=== PATIENT | male | born 1970 | race Caucasian/White ===

== ENCOUNTER → 2020-08-11 14:44 | Outpatient (BNVA) | payer OTHER, SELFPAY | PROVIDERS: PCP Internal Medicine; Referring Provider Internal Medicine; Visit Provider Nurse Practitioner | DX: Z76.89 Persons encountering health services in other specified circumstances (principal) ==

== ENCOUNTER 2020-09-17 10:07 | Day surgery (SDC) | payer OTHER, SELFPAY ==
[2020-09-12 09:52] VITALS: BMI 33.2
--- NOTE | 2020-09-16 09:41 | P.CONAN_ITS ---
Documented by User: Sharifa Wagoner 09/16/20 09:42 HPI - Anesthesia Eval Consult details Narrative: 50yo M for Colonoscopy [facility] Past Medical History Medical History (Updated 09/12/20 @ 09:51 by Blanquita White) Elevated cholesterol GERD (gastroesophageal reflux disease) HTN (hypertension) Family History Family History (Updated 08/11/20 @ 14:17 by DESTINY Gudino) Father No problems noted. Mother HTN (hypertension) Diabetes Hypercholesteremia Myocardial infarction Sister Cancer Surgical History Surgical History Hx of colonoscopy Social History Social History Alcohol intake: current Alcohol intake frequency: holidays/special occasions only Smoking Status: Current every day smoker Packs Per Day: 0.5 Cigarettes Per Day: 10.0 Years Smoked: 20+ Smoked in Last 30 Days: Yes Patient Given Instructions on How to Stop Smoking: Yes Date Education Initiated: 09/12/20 Use of substances other than those prescribed or required for medical reasons: No Advance Directives: No Advance Directives Information Provided: No Advance Directives on File: No Recently lost weight without trying: No Meds Allergies Allergy/AdvReac Type Severity Reaction Status Date / Time No Known Allergies Allergy Unverified 09/12/20 09:51 [No Known Allergies*] Exam Exam Date and Time: September 16, 2020 0941 Height,Weight and Vital Signs: Height 5 ft 9 in Weight 102.058 kg Assessment and Plan Assessment Anesthesia Assessment: Chart Reviewed Documented by User: Griselda Tijerina 09/17/20 10:27 [facility] Past Medical History Medical History (Updated 09/12/20 @ 09:51 by Blanquita White) Elevated cholesterol GERD (gastroesophageal reflux disease) HTN (hypertension) Family History Family History (Updated 08/11/20 @ 14:17 by DESTINY Gudino) Father No problems noted. Mother HTN (hypertension) Diabetes Hypercholesteremia Myocardial infarction Sister Cancer Surgical History Surgical History Hx of colonoscopy Social History Social History Alcohol intake: current Alcohol intake frequency: holidays/special occasions only Smoking Status: Current every day smoker Packs Per Day: 0.5 Cigarettes Per Day: 10.0 Years Smoked: 20+ Smoked in Last 30 Days: Yes Patient Given Instructions on How to Stop Smoking: Yes Date Education Initiated: 09/12/20 Use of substances other than those prescribed or required for medical reasons: No Advance Directives: No Advance Directives Information Provided: No Advance Directives on File: No Recently lost weight without trying: No Meds Allergies Allergy/AdvReac Type Severity Reaction Status Date / Time No Known Allergies Allergy Unverified 09/12/20 09:51 [No Known Allergies*] Exam Airway Mallampati Class: II TM Dist: >3cm Neck ROM: Full Heart: RRR Lungs: CTA
[2020-09-17 10:28] VITALS: BP 147/107; PULSE 117; RESP 18; TEMP 36.2; O2SAT 97
[2020-09-17] MEDS: Lactated Ringers 1,000 ML 100 ML IVCONT (10:34)
--- NOTE | 2020-09-17 10:41 | MHC.SHP ---
Pre-Procedural Eval Section B Chief Complaint: tubular adenoma of colon Relevant Family History (Specify if Yes): No Relevant Social History: Tobacco Use Present Medications: see Short Stay Collaborative assessment Medical History: Significant History (Elevated cholesterol GERD (gastroesophageal reflux disease) HTN (hypertension)) History of Previous Operations: Relevant previous surgery/procedure and date(s) (knee surgery) Allergies: Allergies Allergy/AdvReac Type Severity Reaction Status Date / Time No Known Allergies Allergy Verified 09/17/20 10:28 [No Known Allergies*] Review of Systems Sugical H&P ROS: Negative: Constitution, Cardiovascular, Respiratory, Neurological, Psychiatric, Hem-Onc, Allergic/Immunologic, Gastrointestinal, Genitourinary, Musculoskeletal, Integumentary, Endocrine and Eyes/Ears/Nose/Throat Exam Surgical H&P Exam: Normal: HEENT, Normal: Heart, Normal: Lungs, Normal: Extremities, Normal: Abdomen, Normal: Skin and Normal: Neurological Plan Diagnosis/Plan: Unchanged I have reviewed the history and physical and performed a pertinent physical examination on my patient. No changes have occurred unless specified.
--- NOTE | 2020-09-17 10:41 | PM.OP ---
Brief Operative Note Date of Service: 09/17/20 Pre-op diagnosis: colon screen Post-op diagnosis: same Procedure: see op note Surgeon: Deborah Barrera MD Anesthesia: MAC Estimated blood loss (mL): 0 Condition: stable Disposition: PACU
--- NOTE | 2020-09-17 10:41 | W.PM.OPN ---
Operative Note Operative Note Date of Service: 09/17/20 Narrative: Operative Information Procedure Description: Colonoscopy COLONOSCOPY Instrument: Olympus variable stiffness pediatric scope 190L Colonoscopy Monitoring: Vital signs and clinical assessment, continuous EKG monitoring, Pulse oximetry, Carbon Dioxide monitoring and blood pressure monitoring were done throughout the procedure. Colon withdrawal time was 19 minutes. Procedure: The patient was placed in the left lateral decubitis position and pre-procedure medications were administered. After a digital rectal examination of the ano-rectum, the video colonoscope was inserted into the rectum and advanced through the colon to the cecum/TI. The colonoscope was slowly withdrawn in a retrograde panoramic fashion and the colon mucosa was carefully examined including a retroflexed view of the rectum. Findings and interventions are described below. Procedure Difficulty:moderate due to looping Findings: Terminal Ileum-couldn;t quite get deep intubation of TI due to looping, only superficial view and appeared normal Cecum: 6-8 mm sessile polyp removed with cold snare, otherwise nml Ascending Colon: normal Transverse Colon -normal Descending Colon:normal Sigmoid Colon: normal Rectum: Retroflexion with moderate sized internal hemorrhoids, grade II, proximal rectum 9 mm sessile polyp removed with cold snare Anorectum - internal hemorrhoids seen at anal verge Colon preparation: [place] Bowel Preparation Scale Right colon; 2 Transverse colon: 2 Left colon; 3 (0 = Unprepared colon segment with mucosa not seen due to solid stool that cannot be cleared. 1 = Portion of mucosa of the colon segment seen, but other areas of the colon segment not well seen due to staining, residual stool and/or opaque liquid. 2 = Minor amount of residual staining, small fragments of stool and/or opaque liquid, but mucosa of colon segment seen well. 3 = Entire mucosa of colon segment seen well with no residual staining, small fragments of stool or opaque liquid) Impression and Post Procedure Diagnosis: polyps internal hemorrhoids Plan: High fiber diet leaflet Avoid straining at stool, epsom salts and sitz bath, anusol supps or cream Repeat Colonoscopy in 5 years if adenoma polyps, 10 yrs if hyperplastic or earlier if clinically indicated Above findings were reviewed with the patient and relevant handouts were provided if indicated.
[2020-09-17 11:22] VITALS: BP 120/81; PULSE 116; RESP 20; TEMP 36.1; O2SAT 95
[2020-09-17 11:37] VITALS: BP 130/80; PULSE 101; RESP 20; TEMP 36.1; O2SAT 97
--- NOTE | 2020-09-17 12:00 | HO.POSTANES ---
Post Anesthesia Evaluation Post Anesthesia Evaluation Vital Signs: Vital Signs Temp Pulse Resp BP Pulse Ox 09/17/20 11:37 96.9 F 101 H 20 130/80 97 09/17/20 11:22 96.9 F 116 H 20 120/81 95 09/17/20 10:28 97.2 F 117 H 18 147/107 H 97 Anesthesia: General (tiva) Mental Status: Awake Pain Control: Satisfactory Nausea/Vomiting: None Hydration: Adequate Anesthesia-Related Issues: No Anes. Related Issues
--- NOTE | 2020-09-17 12:00 | HO.POSTANES ---
Post Anesthesia Evaluation Post Anesthesia Evaluation Vital Signs: Vital Signs Temp Pulse Resp BP Pulse Ox 09/17/20 11:37 96.9 F 101 H 20 130/80 97 09/17/20 11:22 96.9 F 116 H 20 120/81 95 09/17/20 10:28 97.2 F 117 H 18 147/107 H 97 Anesthesia: Monitored Mental Status: Awake Pain Control: Satisfactory Nausea/Vomiting: None Hydration: Adequate Anesthesia-Related Issues: No Anes. Related Issues
== END 2020-09-17 12:00 | disposition home or self-care (01) ==
PROVIDERS: PCP Internal Medicine; Visit Provider Internal Medicine Gastroenterology
PROC: 0DJD8ZZ Inspection of Lower Intestinal Tract, Via Natural or Artificial Opening Endoscopic (ICD-10-PCS; CPT 45378; principal; 2020-09-17 12:10)
DX: Z12.11 Encounter for screening for malignant neoplasm of colon (principal); Z86.010 Personal history of colon polyps; D12.2 Benign neoplasm of ascending colon; K62.1 Rectal polyp; K64.1 Second degree hemorrhoids; I10 Essential (primary) hypertension; K21.9 Gastro-esophageal reflux disease without esophagitis; F17.210 Nicotine dependence, cigarettes, uncomplicated; Z79.899 Other long term (current) drug therapy
CPT/HCPCS: 45385; 88305; J3010

== ENCOUNTER → 2020-10-15 13:24 | Outpatient (BNVA) | payer OTHER, SELFPAY | PROVIDERS: PCP Internal Medicine; Visit Provider Nurse Practitioner Family ==

== ENCOUNTER 2021-02-15 05:35 | Emergency (ER) | payer OTHER, SELFPAY ==
--- NOTE | ~2021-02-15 | XR_ITS ---
EXAMINATION: XR KNEE, LEFT CLINICAL INFORMATION: Pain and swelling COMPARISON: None TECHNIQUE: Four views of the left knee. FINDINGS: No acute fracture or dislocation. Small tricompartmental marginal osteophytes. Quadriceps and patellar tendon enthesopathy. Small knee joint effusion. Soft tissues unremarkable. XR/XR knee LT 4V IMPRESSION: No acute osseous abnormalities. Small knee joint effusion.
[2021-02-15 06:05] VITALS: BP 180/115; PULSE 100; RESP 16; TEMP 36.9; O2SAT 97; BMI 37.6
--- NOTE | 2021-02-15 07:13 | PC.NURSE ---
Report taken from CLAIRE Cramer. pt in bed resting quietly. awaiting disposition following X-ray.,
--- NOTE | 2021-02-15 07:19 | ED.LOWEXIN ---
HPI - Extremity Injury (Lower) General Chief Complaint: Extremity Injury, Lower Stated Complaint: left knee swollen Time Seen by Provider: 02/15/21 06:09 Source: patient Mode of arrival: ambulatory History of Present Illness HPI Narrative: 51-year-old male with left painful, swollen knee. Patient is status post arthroscopic meniscus repair of the left knee and states that he went through a more rigorous physical therapy session on Tuesday and since that time has noted that his knee has become a little more painful with some noted swelling and ?just not feeling right?. Otherwise, he denies any fever, chills, shortness of breath, chest pain/palpitations, or calf swelling. Related Data Previous Rx's Medication Instructions Recorded bisacodyl 5 mg tablet,delayed 10 mg PO BEDTIME 2 Days #4 tab 08/11/20 release omeprazole 40 mg capsule,delayed 40 mg PO DAILY 30 Days #30 cap 08/11/20 release polyethylene glycol 3350 17 238 g PO ONCE 1 Days #238 g 09/01/20 gram/dose oral powder Allergies Allergy/AdvReac Type Severity Reaction Status Date / Time No Known Allergies Allergy Verified 10/15/20 13:25 [No Known Allergies*] Review of Systems Review of Systems: Pertinent positives and negatives as stated in the HPI and 10 point review of systems is otherwise negative. [facility] Past Medical History Source: nursing notes reviewed Medical History Elevated cholesterol GERD (gastroesophageal reflux disease) HTN (hypertension) Surgical History H/O knee surgery Hx of colonoscopy Family History Family History Mother HTN (hypertension) Diabetes Hypercholesteremia Myocardial infarction Sister Cancer Social History Social History Household Members: Spouse Alcohol intake: current Alcohol intake frequency: holidays/special occasions only Cigarettes Per Day: 5 Years Smoked: 20+ Advance Directives: No Advance Directives Information Provided: No Physical Exam Vital Signs: Vital Signs: Last Vital Signs Temp 98.4 F 02/15/21 06:05 Pulse 100 02/15/21 06:05 Resp 16 02/15/21 06:05 BP 180/115 H 02/15/21 06:05 Pulse Ox 97 02/15/21 06:05 Body Mass Index 37.6 VITAL SIGNS: Reviewed. GENERAL: Well developed, well nourished, in no acute distress. HEAD: Normocephalic/atraumatic EYES: PERRLA, EOMI OROPHARYNX: no oral lesions noted, posterior pharynx clear LUNGS: Normal breath sounds. No adventitious sounds or accessory muscle use. SpO2<97> CARDIOVASCULAR: Regular rate and rhythm without noted murmurs ABDOMEN: Obese, Soft, non-tender, non-distended with bowel sounds. LEFT KNEE: Very mild swelling noted with minimal tenderness on palpation but noted at the medial aspect of the patellar ligament, neurovascularly intact distal NEUROLOGIC: Alert and oriented x 4. Course Course Course Narrative: 51-year-old male with history and clinical presentation consistent with left knee pain exacerbated by intense physical therapy session with residual swelling and discomfort at the left knee joint low clinical suspicion of infection. Review of x-rays negative for acute findings other than small effusion. Discussed with patient the utility of using compression and applied an Mikey wrap the patient was instructed to use when he ambulates. Discharge Plan Discharge Clinical Impression: Knee pain, left Patient Disposition: Home, Self-Care Instructions: Knee Pain (ED) Additional Instructions: Resume all home medications as prescribed. Recommend applying ice for 10-15 minutes, 3 to 4 times a day on unexposed scan. Keep Mikey wrap in place or your home brace while at walking. Follow-up with your doctor on Tuesday morning. Return to the ER for worsening symptoms. Prescriptions: No Action polyethylene glycol 3350 [Miralax] 17 gram/dose powder 238 g PO ONCE 1 Days Qty: 238 RF: 0 omeprazole 40 mg capsule,delayed release(DR/EC) 40 mg PO DAILY 30 Days Qty: 30 RF: 3 bisacodyl [Dulcolax (bisacodyl)] 5 mg tablet,delayed release (DR/EC) 10 mg PO BEDTIME 2 Days Qty: 4 RF: 0 Referrals: Physician,Unknown [Primary Care Provider] - 2 days
[2021-02-15 07:20] VITALS: BP 151/119
[2021-02-15] MEDS: Ketorolac Tromethamine 15 MG/ML VIAL IM (07:23)
[2021-02-15] MEDS: Acetaminophen 325 MG TABLET 975 MG PO (07:24)
== END 2021-02-15 07:42 | disposition home or self-care (01) ==
PROVIDERS: Emergency Provider Student in an Organized Health Care Education/Training Program
DX: M25.562 Pain in left knee (principal); I10 Essential (primary) hypertension
CPT/HCPCS: 73564; 96372; 99284; J1885

== ENCOUNTER 2021-07-31 00:45 | Emergency (ER) | payer OTHER, SELFPAY ==
--- NOTE | ~2021-07-31 | US_ITS ---
EXAMINATION: US SCROTUM CLINICAL INFORMATION: Swelling, severe right-sided.. COMPARISON: None TECHNIQUE: A sonogram of the scrotum was performed assessing weaver-scale appearance and color Doppler flow. Spectral Doppler analysis of the arterial and venous flow were performed in the testes bilaterally. FINDINGS: The testes are normal in appearance. The right testis measures 3.8 cm x 2.8 cm x 3.1 cm. The left testis measures 4.5 cm x 2.9 cm x 2.9 cm. Normal color Doppler flow is noted within the testes. No focal parenchymal lesions of the testes. Normal low resistive arterial and venous waveforms are identified on spectral Doppler interrogation within the left and right testes. Color Doppler flow demonstrates hyperemia within the body and tail of the right epididymis which appears mildly enlarged. Incidental note is made of a unilocular benign-appearing 6 mm diameter simple cyst within the head of the left epididymis which is otherwise normal in appearance. A large right-sided hydrocele comprised of predominantly anechoic fluid is noted. US/US scrotum doppler IMPRESSION: -Findings suspicious for right-sided epididymitis. The right epididymis demonstrates hyperemia and mild enlargement. Furthermore, a large right hydrocele comprised of predominantly anechoic, simple fluid is noted. -Normal appearance of the testes.
--- NOTE | ~2021-07-31 | US_ITS ---
EXAMINATION: US SCROTUM CLINICAL INFORMATION: Swelling, severe right-sided.. COMPARISON: None TECHNIQUE: A sonogram of the scrotum was performed assessing weaver-scale appearance and color Doppler flow. Spectral Doppler analysis of the arterial and venous flow were performed in the testes bilaterally. FINDINGS: The testes are normal in appearance. The right testis measures 3.8 cm x 2.8 cm x 3.1 cm. The left testis measures 4.5 cm x 2.9 cm x 2.9 cm. Normal color Doppler flow is noted within the testes. No focal parenchymal lesions of the testes. Normal low resistive arterial and venous waveforms are identified on spectral Doppler interrogation within the left and right testes. Color Doppler flow demonstrates hyperemia within the body and tail of the right epididymis which appears mildly enlarged. Incidental note is made of a unilocular benign-appearing 6 mm diameter simple cyst within the head of the left epididymis which is otherwise normal in appearance. A large right-sided hydrocele comprised of predominantly anechoic fluid is noted. US/US scrotum IMPRESSION: -Findings suspicious for right-sided epididymitis. The right epididymis demonstrates hyperemia and mild enlargement. Furthermore, a large right hydrocele comprised of predominantly anechoic, simple fluid is noted. -Normal appearance of the testes.
[2021-07-31 00:47] VITALS: BP 157/111; PULSE 116; RESP 20; TEMP 36.9; O2SAT 98; BMI 36.6
--- NOTE | 2021-07-31 01:04 | ED_ITS ---
HPI - Male Genitourinary General Chief complaint: General Medical Stated complaint: ?Hernia Time Seen by Provider: 07/31/21 00:47 Source: patient Mode of arrival: ambulatory Limitations: no limitations History of Present Illness MD Complaint: testicle pain and testicle swelling Onset (ago): day(s) (2 has had this before but never to this degree has not had it worked up in the past) Duration: progressively worsening Location: right testicle Radiation: right testicle Severity: moderate Quality: aching Relieving factors: none Exacerbating factors: urination Context: other (hx of same in past but usually resolves quicker) Associated symptoms: Reports blood in urine (thinks he saw some drops of blood the other day) Related Data Previous Rx's Medication Instructions Recorded bisacodyl 5 mg tablet,delayed 10 mg PO BEDTIME 2 Days #4 tab 08/11/20 release (Dulcolax (bisacodyl)) omeprazole 40 mg capsule,delayed 40 mg PO DAILY 30 Days #30 cap 08/11/20 release polyethylene glycol 3350 17 238 g PO ONCE 1 Days #238 g 09/01/20 gram/dose oral powder (Miralax) levofloxacin 500 mg tablet 500 mg PO DAILY 10 Days #10 tab 07/31/21 morphine 15 mg immediate release 15 mg PO Q6H PRN 4 Days #18 tab 07/31/21 tablet Allergies Allergy/AdvReac Type Severity Reaction Status Date / Time No Known Allergies Allergy Verified 07/31/21 00:56 [No Known Allergies*] Review of Systems Review of Systems: Constitutional : No Fever, No Chills ENT/Mouth : No sore throat, No Rhinorrhea Eyes: No Eye Pain, No Swelling, No Redness Cardiovascular : No Chest Pain, No SOB Respiratory : No Cough, No Sputum, No Wheezing Gastrointestinal : No Nausea, No Vomiting, No Diarrhea, No abdominal Pain Genitourinary : No Dysuria, No Urinary Frequency, pos Hematuria, pos testicle pain Musculoskeletal : No joint pain, No Myalgias, No Joint Swelling Skin : No Skin Lesions, No rash Neuro : No Weakness, No Numbness, No Dizziness, No Headache Psych : No Anxiety/Panic, No Depression Heme/Lymph: No Bruising, No Bleeding,No Lymphadenopathy Endocrine : No Polyuria, No Polydipsia All other systems reviewed and are negative [facility] Past Medical History Attestation statement: The following information was validated with the patient. Medical History Elevated cholesterol GERD (gastroesophageal reflux disease) HTN (hypertension) Surgical History H/O knee surgery Hx of colonoscopy Family History Family History Mother HTN (hypertension) Diabetes Hypercholesteremia Myocardial infarction Sister Cancer Social History Social History Household Members: Spouse Alcohol intake: current Alcohol intake frequency: holidays/special occasions only Cigarettes Per Day: 5 Years Smoked: 20+ Advance Directives: No Physical Exam Vital Signs: Vital Signs: Last Vital Signs Temp 98.4 F 07/31/21 00:47 Pulse 100 07/31/21 02:02 Resp 18 07/31/21 03:31 BP 163/108 H 07/31/21 02:02 Pulse Ox 95 07/31/21 02:02 BMI result Body Mass Index 36.6 Appearance: Alert. Oriented X3. No acute distress. Eyes: Pupils equal, round and reactive to light. ENT: Pharynx normal. Neck: Normal inspection. Neck supple. CVS: Normal heart rate and rhythm. Pulses normal. Respiratory: No respiratory distress. Breath sounds normal. Abdomen: Soft and nontender. no mass in groin felt : R testicle moderate swelling no erythema/abscess of scrotum noted no warmth, area that is swollen appears to be attached to the testicle itself - does not feel like a hernia Skin: Skin warm and dry. Normal skin color. Normal skin turgor. Extremities: No lower extremity edema. No calf ttp Neuro: Oriented X 3. No motor deficit. No sensory deficit. Course Course Course Narrative: empiric ceftriaxone and levofloxacin ordered - can be managed as outpatient MDM - Male Genitourinary MDM Narrative Medical decision making narrative: 51 yo male with hx of HTN he is not DM comes in with c/o R testicle pain and swelling. He notes a history of this in the past but it usually goes down on its own but this bout the testicle has become more swollen and painful - no signs of abscess or infection. Will obtain labs, UA, US to evaluate the scrotum and testicle. PO pain medications. Dispo per results and findings. Lab Data Result diagrams: 07/31/21 01:16 07/31/21 01:16 Labs: Lab Results 07/31/21 07/31/21 07/31/21 Range/Units 01:16 01:16 01:27 WBC 12.3 H (4.8-10.8) X10*3/uL RBC 5.26 (4.60-5.80) X10*6/uL Hgb 16.0 (14.0-18.0) g/dl Hct 46.0 (42.0-52.0) % MCV 87.5 (80.0-98.0) fL MCH 30.4 (27.0-33.0) pg MCHC 34.8 (31.0-36.0) g/dl RDW 13.2 (11.0-16.0) % Plt Count 283 (160-400) X10*3/uL MPV 10.9 (9.4-12.4) fL Immature Gran % (Auto) 0.4 (0.0-0.4) % Neut % (Auto) 76.2 H (45-73) % Lymph % (Auto) 14.9 L (20-40) % [place] % (Auto) 7.8 (2-11) % Eos % (Auto) 0.5 (0-4) % Baso % (Auto) 0.2 (0-2) % Lymph # (Auto) 1.8 (1.2-4.9) X10*3/uL [place] # (Auto) 1.0 (0.1-1.2) X10*3/uL Eos # (Auto) 0.1 (0.0-0.4) X10*3/uL Baso # (Auto) 0.0 (0.0-0.2) X10*3/uL Abs Immat Gran (auto) 0.05 H (0.00-0.03) X10*3/uL Absolute Neuts (auto) 9.4 H (2.0-8.3) x10*3/uL Absolute Nucleated RBC 0.000 (0.0-0.012) X10*3/uL Nucleated RBC % (auto) 0.0 (0.0-0.2) /100WBC Sodium 139 (135-145) mmol/L Potassium 3.9 (3.3-5.1) mmol/L Chloride 107 (96-108) mmol/L Carbon Dioxide 23 (22-29) mmol/L Anion Gap 13 (12-20) BUN 14 (9-16) mg/dL Creatinine 1.16 (0.5-1.4) mg/dL Estim Creat Clear Calc 93.8 Estimated GFR > 60 Random Glucose 104 (60-115) mg/dL Lactic Acid (0.5-2.0) mmol/L Calcium 9.6 (8.4-10.2) mg/dL Urine Color YELLOW Urine Appearance HAZY Urine pH 6.0 (5.0-8.0) Ur Specific [place] 1.015 (1.005-1.025) Urine Protein NEG (NEG-TRACE) MG/DL Urine Glucose (UA) NEG (NEG) MG/DL Urine Ketones NEG (NEG) MG/DL Urine Blood TRACE (NEG) Urine Nitrite POS H (NEG) Ur Leukocyte Esterase 2+ H (NEG) Urine RBC 0-2 (0) /HPF Urine WBC 15-29 H (0-4) /HPF Ur Squamous Epith Cells NONE /LPF Urine Bacteria 2+ /LPF Urine Mucus TRACE /LPF 07/31/21 Range/Units 03:03 WBC (4.8-10.8) X10*3/uL RBC (4.60-5.80) X10*6/uL Hgb (14.0-18.0) g/dl Hct (42.0-52.0) % MCV (80.0-98.0) fL MCH (27.0-33.0) pg MCHC (31.0-36.0) g/dl RDW (11.0-16.0) % Plt Count (160-400) X10*3/uL MPV (9.4-12.4) fL Immature Gran % (Auto) (0.0-0.4) % Neut % (Auto) (45-73) % Lymph % (Auto) (20-40) % [place] % (Auto) (2-11) % Eos % (Auto) (0-4) % Baso % (Auto) (0-2) % Lymph # (Auto) (1.2-4.9) X10*3/uL [place] # (Auto) (0.1-1.2) X10*3/uL Eos # (Auto) (0.0-0.4) X10*3/uL Baso # (Auto) (0.0-0.2) X10*3/uL Abs Immat Gran (auto) (0.00-0.03) X10*3/uL Absolute Neuts (auto) (2.0-8.3) x10*3/uL Absolute Nucleated RBC (0.0-0.012) X10*3/uL Nucleated RBC % (auto) (0.0-0.2) /100WBC Sodium (135-145) mmol/L Potassium (3.3-5.1) mmol/L Chloride (96-108) mmol/L Carbon Dioxide (22-29) mmol/L Anion Gap (12-20) BUN (9-16) mg/dL Creatinine (0.5-1.4) mg/dL Estim Creat Clear Calc Estimated GFR Random Glucose (60-115) mg/dL Lactic Acid 1.3 (0.5-2.0) mmol/L Calcium (8.4-10.2) mg/dL Urine Color Urine Appearance Urine pH (5.0-8.0) Ur Specific [place] (1.005-1.025) Urine Protein (NEG-TRACE) MG/DL Urine Glucose (UA) (NEG) MG/DL Urine Ketones (NEG) MG/DL Urine Blood (NEG) Urine Nitrite (NEG) Ur Leukocyte Esterase (NEG) Urine RBC (0) /HPF Urine WBC (0-4) /HPF Ur Squamous Epith Cells /LPF Urine Bacteria /LPF Urine Mucus /LPF Discharge Plan Discharge Clinical Impression: Acute UTI, Acute hydrocele, Acute epididymitis Patient Disposition: Home, Self-Care Instructions: Epididymitis (ED), Hydrocele (ED), Urinary Tract Infection in Men (ED) Additional Instructions: wear very supportive underwear Prescriptions: New levofloxacin 500 mg tablet 500 mg PO DAILY 10 Days Qty: 10 RF: 0 morphine 15 mg tablet 15 mg PO Q6H PRN (Reason: pain) 4 Days Qty: 18 RF: 0 No Action polyethylene glycol 3350 [Miralax] 17 gram/dose powder 238 g PO ONCE 1 Days Qty: 238 RF: 0 omeprazole 40 mg capsule,delayed release(DR/EC) 40 mg PO DAILY 30 Days Qty: 30 RF: 3 bisacodyl [Dulcolax (bisacodyl)] 5 mg tablet,delayed release (DR/EC) 10 mg PO BEDTIME 2 Days Qty: 4 RF: 0 Referrals: Eber Davison MD [Physician] - 1 week Stand Alone Forms: Work/School Release
--- NOTE | 2021-07-31 01:08 | PC.NURSE ---
PROVIDER AT BED SIDE FOR PRIMARY EVAL.
[2021-07-31] MEDS: Morphine Sulfate Immed Release 15 MG TABLET PO (01:13)
[2021-07-31] MEDS: Ondansetron ODT 4 MG TAB.RAPDIS TRANSLINGU (01:14)
[2021-07-31 01:25] LABS: Basophils Percent Auto 0.2 % (0-2); Eosinophils Absolute Auto 0.1 X10*3/uL (0.0-0.4); Eosinophils Percent Auto 0.5 % (0-4); Imm Gran Abs Auto 0.05 X10*3/uL (0.00-0.03); Imm Gran Pct Auto 0.4 % (0.0-0.4); Lymphocytes Absolute Auto 1.8 X10*3/uL (1.2-4.9); Lymphocytes Percent Auto 14.9 % (20-40); Mean Corpuscular HGB Conc 34.8 g/dl (31.0-36.0); Mean Corpuscular Hemoglobin 30.4 pg (27.0-33.0); Mean Corpuscular Volume 87.5 fL (80.0-98.0); Mean Platelet Volume 10.9 fL (9.4-12.4); Monocytes Percent Auto 7.8 % (2-11); Neutrophils Absolute Auto 9.4 x10*3/uL (2.0-8.3); Neutrophils Percent Auto 76.2 % (45-73); Platelet Count 283 X10*3/uL (160-400); Red Blood Count 5.26 X10*6/uL (4.60-5.80); Red Cell Distribution Width 13.2 % (11.0-16.0); White Blood Count 12.3 X10*3/uL (4.8-10.8)
[2021-07-31 01:27] LABS: MANUAL DIFF FLAG NO
[2021-07-31 01:32] LABS: Appearance Urine HAZY; Color Urine YELLOW; Glucose Urine UA NEG (NEG); Leukocyte Esterase Urine 2+ (NEG); Nitrite Urine POS (NEG); Specific Gravity - Urine 1.015 (1.005-1.025); UACC Culture Trigger YES; Urine Blood TRACE (NEG); Urine Ketones NEG (NEG); Urine Protein NEG (NEG-TRACE)
[2021-07-31 01:40] LABS: Bacteria Urine 2+ /LPF; Mucus Urine TRACE /LPF
[2021-07-31 01:41] LABS: RBC Urine 0-2 /HPF (0)
[2021-07-31 01:42] LABS: Anion Gap 13 (12-20); Blood Urea Nitrogen 14 mg/dL (9-16); Calcium 9.6 mg/dL (8.4-10.2); Carbon Dioxide 23 mmol/L (22-29); Chloride 107 mmol/L (96-108); Creatinine Clr Calc Pharmacy 93.8; Estimated Glomerular Filt Rate > 60; Glucose Random 104 mg/dL (60-115); Potassium 3.9 mmol/L (3.3-5.1); Sodium 139 mmol/L (135-145)
[2021-07-31 02:02] VITALS: BP 163/108; PULSE 100; RESP 18; O2SAT 95
[2021-07-31] MEDS: levoFLOXacin/D5W 500 MG/100 ML PIGGYBACK 100 MG IV (03:09)
[2021-07-31 03:20] LABS: Lactic Acid 1.3 mmol/L (0.5-2.0)
[2021-07-31 03:31] VITALS: RESP 18
[2021-07-31] MEDS: HYDROmorphone HCl 1 MG/ML SYRINGE IVPUSH (03:31)
[2021-07-31] MEDS: cefTRIAXone sodium 1 GM in 0.9 % Sodium Chloride 50 ML IV (04:22)
== END 2021-07-31 05:10 | disposition home or self-care (01) ==
PROVIDERS: Emergency Provider Emergency Medicine
DX: N43.3 Hydrocele, unspecified (principal); N45.1 Epididymitis; N39.0 Urinary tract infection, site not specified; I10 Essential (primary) hypertension
CPT/HCPCS: 36415; 76870; 80048; 81001; 83605; 85025; 87040; 87086; 87088; 87186; 93975; 96365; 96367; 96375; 99284; J0696; J1170; J1956

== ENCOUNTER 2021-08-30 09:22 | Outpatient (REF) | payer OTHER, SELFPAY ==
[2021-08-30 10:31] LABS: COVID-19 Test Positive (Negative)
== END 2021-08-30 09:23 | disposition home or self-care (01) ==
LOC: HO.LAB 09:22
PROVIDERS: Visit Provider Internal Medicine
DX: Z20.822 Contact with and (suspected) exposure to COVID-19 (principal)
CPT/HCPCS: 36415; 87635; C9803

== ENCOUNTER 2021-09-03 07:58 | Outpatient (REF) | payer OTHER, SELFPAY ==
[2021-09-03 11:52] LABS: Binax Internal Control QC Valid; Binax Now Covid-19 Ag Positive (Negative)
== END 2021-09-03 07:59 | disposition home or self-care (01) ==
LOC: HO.LAB 07:58
PROVIDERS: Visit Provider Internal Medicine
DX: Z20.822 Contact with and (suspected) exposure to COVID-19 (principal)
CPT/HCPCS: C9803

== ENCOUNTER 2021-09-07 08:43 | Outpatient (REF) | payer OTHER, SELFPAY ==
[2021-09-07 11:58] LABS: Binax Internal Control QC Valid; Binax Now Covid-19 Ag Negative (Negative)
== END 2021-09-07 08:44 | disposition home or self-care (01) ==
LOC: HO.LAB 08:43
PROVIDERS: Visit Provider Internal Medicine
DX: Z20.822 Contact with and (suspected) exposure to COVID-19 (principal)
CPT/HCPCS: 36415; C9803

== ENCOUNTER 2022-01-12 10:34 | Outpatient (REF) | payer OTHER, SELFPAY ==
[2022-01-12 11:05] LABS: MANUAL DIFF FLAG NO
[2022-01-12 11:53] LABS: Basophils Percent Auto 0.2 % (0-2); Eosinophils Absolute Auto 0.2 X10*3/uL (0.0-0.4); Eosinophils Percent Auto 1.7 % (0-4); Hematocrit 48.3 % (42.0-52.0); Hemoglobin 16.2 g/dl (14.0-18.0); Imm Gran Abs Auto 0.07 X10*3/uL (0.00-0.03); Imm Gran Pct Auto 0.6 % (0.0-0.4); Lymphocytes Absolute Auto 2.4 X10*3/uL (1.2-4.9); Lymphocytes Percent Auto 19.8 % (20-40); Mean Corpuscular HGB Conc 33.5 g/dl (31.0-36.0); Mean Corpuscular Volume 86.6 fL (80.0-98.0); Mean Platelet Volume 11.3 fL (9.4-12.4); Monocytes Absolute Auto 0.9 X10*3/uL (0.1-1.2); Monocytes Percent Auto 7.3 % (2-11); Neutrophils Absolute Auto 8.4 x10*3/uL (2.0-8.3); Neutrophils Percent Auto 70.4 % (45-73); Platelet Count 281 X10*3/uL (160-400); Red Blood Count 5.58 X10*6/uL (4.60-5.80); Red Cell Distribution Width 13.2 % (11.0-16.0)
[2022-01-12 11:57] LABS: Estimated Average Glucose 120 mg/dL; Hemoglobin A1c % 5.8 %
[2022-01-12 12:25] LABS: Alanine Aminotransferase 48 U/L (0-40); Albumin Level 4.3 g/dL (3.5-5.0); Alkaline Phosphatase 109 U/L (39-117); Anion Gap 12 (12-20); Aspartate Amino Transferase 23 U/L (5-37); Bilirubin Total 0.6 mg/dL (0.0-1.0); Blood Urea Nitrogen 23 mg/dL (9-16); Calcium 9.9 mg/dL (8.4-10.2); Carbon Dioxide 27 mmol/L (22-29); Chloride 104 mmol/L (96-108); Cholesterol 161 mg/dL; Estimated Glomerular Filt Rate > 60; Glucose Random 96 mg/dL (60-115); HDL Cholesterol 29 mg/dL; LDL Cholesterol Calculated 105 mg/dl; Potassium 4.1 mmol/L (3.3-5.1); Sodium 139 mmol/L (135-145); Triglycerides 139 mg/dL
== END 2022-01-12 10:35 | disposition home or self-care (01) ==
LOC: HO.LAB 10:34
PROVIDERS: PCP Internal Medicine; Visit Provider Internal Medicine
DX: Z00.00 Encounter for general adult medical examination without abnormal findings (principal); I10 Essential (primary) hypertension; M54.50 Low back pain, unspecified; Z72.0 Tobacco use
CPT/HCPCS: 36415; 80053; 80061; 83036; 85025

== ENCOUNTER 2022-11-04 10:12 | Outpatient (REF) | payer OTHER, SELFPAY ==
[2022-11-04 10:46] LABS: MANUAL DIFF FLAG NO
[2022-11-04 11:04] LABS: Basophils Percent Auto 0.2 % (0-2); Eosinophils Absolute Auto 0.1 X10*3/uL (0.0-0.4); Eosinophils Percent Auto 1.4 % (0-4); Hematocrit 50.2 % (42.0-52.0); Hemoglobin 17.3 g/dl (14.0-18.0); Imm Gran Abs Auto 0.06 X10*3/uL (0.00-0.03); Imm Gran Pct Auto 0.6 % (0.0-0.4); Lymphocytes Absolute Auto 2.1 X10*3/uL (1.2-4.9); Lymphocytes Percent Auto 20.8 % (20-40); Mean Corpuscular HGB Conc 34.5 g/dl (31.0-36.0); Mean Corpuscular Hemoglobin 29.5 pg (27.0-33.0); Mean Corpuscular Volume 85.5 fL (80.0-98.0); Mean Platelet Volume 11.1 fL (9.4-12.4); Monocytes Absolute Auto 0.8 X10*3/uL (0.1-1.2); Monocytes Percent Auto 7.4 % (2-11); Neutrophils Absolute Auto 7.1 x10*3/uL (2.0-8.3); Neutrophils Percent Auto 69.6 % (45-73); Platelet Count 325 X10*3/uL (160-400); Red Blood Count 5.87 X10*6/uL (4.60-5.80); Red Cell Distribution Width 13.3 % (11.0-16.0); White Blood Count 10.2 X10*3/uL (4.8-10.8)
[2022-11-04 16:13] LABS: Alanine Aminotransferase 55 U/L (0-40); Albumin Level 4.4 g/dL (3.5-5.0); Alkaline Phosphatase 108 U/L (39-117); Anion Gap 16 (12-20); Aspartate Amino Transferase 28 U/L (5-37); Bilirubin Total 1.3 mg/dL (0.0-1.0); Blood Urea Nitrogen 16 mg/dL (9-16); Calcium 9.2 mg/dL (8.4-10.2); Carbon Dioxide 27 mmol/L (22-29); Chloride 101 mmol/L (96-108); Cholesterol 152 mg/dL; Estimated Glomerular Filt Rate 53; Glucose Fasting 91 mg/dL (60-99); HDL Cholesterol 29 mg/dL; LDL Cholesterol Calculated 106 mg/dl; Potassium 3.9 mmol/L (3.3-5.1); Sodium 140 mmol/L (135-145); Total Protein 6.7 g/dL (6.5-8.0); Triglycerides 87 mg/dL
[2022-11-04 16:17] LABS: Prostate Specific Antigen 0.44 ng/mL (<0.05-4.0)
== END 2022-11-04 10:13 | disposition home or self-care (01) ==
LOC: HO.10HDL 10:12
PROVIDERS: Visit Provider Internal Medicine
DX: E78.00 Pure hypercholesterolemia, unspecified (principal); I10 Essential (primary) hypertension; L82.1 Other seborrheic keratosis; M25.562 Pain in left knee; Z72.0 Tobacco use; Z12.5 Encounter for screening for malignant neoplasm of prostate
CPT/HCPCS: 36415; 80053; 80061; 84153; 85025

== ENCOUNTER 2023-04-07 12:21 | Outpatient (REF) | payer OTHER, SELFPAY ==
[2023-04-07 15:03] LABS: Cholesterol 130 mg/dL; HDL Cholesterol 25 mg/dL; LDL Cholesterol Calculated 69 mg/dl; Triglycerides 182 mg/dL
== END 2023-04-07 12:22 | disposition home or self-care (01) ==
LOC: HO.10HDL 12:21
PROVIDERS: Visit Provider Internal Medicine
DX: I10 Essential (primary) hypertension (principal); H34.12 Central retinal artery occlusion, left eye; G47.33 Obstructive sleep apnea (adult) (pediatric); Z72.0 Tobacco use
CPT/HCPCS: 36415; 80061

== ENCOUNTER 2024-01-12 11:47 | Outpatient (REF) | payer OTHER, SELFPAY ==
[2024-01-12 12:48] LABS: MANUAL DIFF FLAG NO
[2024-01-12 12:51] LABS: Basophils Percent Auto 0.3 % (0-2); Eosinophils Absolute Auto 0.1 X10*3/uL (0.0-0.4); Eosinophils Percent Auto 1.4 % (0-4); Hematocrit 49.8 % (42.0-52.0); Imm Gran Abs Auto 0.06 X10*3/uL (0.00-0.03); Imm Gran Pct Auto 0.7 % (0.0-0.4); Lymphocytes Percent Auto 23.1 % (20-40); Mean Corpuscular HGB Conc 34.1 g/dl (31.0-36.0); Mean Corpuscular Hemoglobin 29.9 pg (27.0-33.0); Mean Corpuscular Volume 87.7 fL (80.0-98.0); Mean Platelet Volume 10.9 fL (9.4-12.4); Monocytes Absolute Auto 0.8 X10*3/uL (0.1-1.2); Monocytes Percent Auto 8.7 % (2-11); Neutrophils Absolute Auto 5.7 x10*3/uL (2.0-8.3); Neutrophils Percent Auto 65.8 % (45-73); Platelet Count 308 X10*3/uL (160-400); Red Blood Count 5.68 X10*6/uL (4.60-5.80); Red Cell Distribution Width 13.6 % (11.0-16.0); White Blood Count 8.6 X10*3/uL (4.8-10.8)
[2024-01-12 13:32] LABS: Alanine Aminotransferase 78 U/L (0-40); Albumin Level 4.2 g/dL (3.5-5.0); Alkaline Phosphatase 110 U/L (39-117); Anion Gap 15 (12-20); Aspartate Amino Transferase 28 U/L (5-37); Bilirubin Total 0.7 mg/dL (0.0-1.0); Blood Urea Nitrogen 14 mg/dL (9-16); Calcium 9.9 mg/dL (8.4-10.2); Carbon Dioxide 25 mmol/L (22-29); Chloride 105 mmol/L (96-108); Cholesterol 128 mg/dL (<200); Estimated Glomerular Filt Rate > 60; Glucose Random 114 mg/dL (60-115); HDL Cholesterol 24 mg/dL (>40); LDL Cholesterol Calculated 75 mg/dL (<100); Potassium 3.9 mmol/L (3.3-5.1); Sodium 141 mmol/L (135-145); Total Protein 7.3 g/dL (6.5-8.0); Triglycerides 146 mg/dL (<150)
[2024-01-12 13:53] LABS: Prostate Specific Antigen Scr 0.37 ng/mL (<0.05-4.0)
== END 2024-01-12 11:48 | disposition home or self-care (01) ==
LOC: HO.10HDL 11:47
PROVIDERS: Visit Provider Internal Medicine
DX: G47.33 Obstructive sleep apnea (adult) (pediatric) (principal); I10 Essential (primary) hypertension; N30.00 Acute cystitis without hematuria; N40.0 Benign prostatic hyperplasia without lower urinary tract symptoms; Z12.5 Encounter for screening for malignant neoplasm of prostate
CPT/HCPCS: 36415; 80053; 80061; 84153; 85025

== ENCOUNTER 2024-04-06 07:29 | Observation (INO) | payer OTHER, SELFPAY ==
[2024-04-06] VITALS (13 sets, daily range): BP systolic 69–169; BP diastolic 51–106; PULSE 62–101; RESP 14–90; TEMP 36.6–37.1; O2SAT 93–99; BMI 40.2
--- NOTE | ~2024-04-06 | XR_ITS ---
EXAMINATION: XR CHEST CLINICAL INFORMATION: Hypertension, abdominal and chest pain. COMPARISON: Chest radiograph 05/30/2016. TECHNIQUE: Frontal view of the chest was obtained. FINDINGS: Low lung volumes with bronchovascular crowding and bibasilar subsegmental atelectasis. No consolidation, pleural effusion or pneumothorax. No pulmonary edema. Stable prominence of the cardiomediastinal silhouette. No acute osseous findings. XR/XR chest 1V IMPRESSION: Low lung volumes with bronchovascular crowding and bibasilar subsegmental atelectasis. No consolidation, pleural effusion or pneumothorax.
--- NOTE | ~2024-04-06 | CT_ITS ---
EXAMINATION: CT ABDOMEN AND PELVIS WITH CONTRAST CLINICAL INFORMATION: Severe abdominal pain, hypotension, tachycardia. COMPARISON: None available. TECHNIQUE: Multidetector volumetric images were obtained from the superior aspect of the liver through the pubic symphysis following administration 100 mL of Omnipaque 350 intravenous contrast. Sagittal and coronal reformatted images were obtained on the technologist's workstation. Oral contrast: No This CT examination was performed using dose optimization techniques as appropriate, variously including the following: *Automated exposure control *Adjustment of mA and/or kV according to patient size (this includes techniques or standardized protocols for targeted exams where dose is matched to indication/reason for exam; i.e. extremities or head) *Use of iterative reconstruction technique DLP: 1084 mGy-cm FINDINGS: LUNG BASES: Bibasilar subsegmental atelectasis. No focal consolidation or pleural effusion. LIVER, GALLBLADDER, AND BILIARY TREE: Hepatomegaly measuring 23.5 cm craniocaudally with decreased parenchymal density suggesting hepatic steatosis. No focal hepatic lesion or biliary ductal dilatation is present. Peripherally calcified oval-shaped structure in the gallbladder neck, likely a calculus measuring 1.8 cm. No evidence of gallbladder wall thickening. No pericholecystic inflammatory changes to suspect acute cholecystitis. PANCREAS: Unremarkable. SPLEEN: Unremarkable. ADRENAL GLANDS: Unremarkable. KIDNEYS AND URETERS: The kidneys are normal in size, shape, and attenuation. Too small to characterize cortical hypodensity in the lower right kidney, most likely a simple cyst, for which no imaging follow-up is recommended. No hydronephrosis, hydroureter, or calculi seen. No perinephric stranding. BLADDER: Moderate urinary bladder distention. GASTROINTESTINAL TRACT: Moderate gastric distention. The small bowel is nondilated. Duodenal diverticulum. Normal appendix. Colonic diverticulosis without significant pericolonic fat stranding or free fluid. ABDOMINAL WALL: Moderate size left-sided fat-containing inguinal hernia, only partially included within the field of view. LYMPH NODES: No lymphadenopathy by CT short axis size criteria. VASCULAR: Moderate atherosclerotic disease. Normal caliber of the abdominal aorta. PELVIC VISCERA: Unremarkable. OSSEOUS STRUCTURES: No acute or aggressive appearing osseous findings. Thoracolumbar spondylosis. CT/CT abdomen pelvis w IV con IMPRESSION: 1. Hepatomegaly and hepatic steatosis. 2. Cholelithiasis but no evidence of acute cholecystitis. 3. Moderate gastric distention, correlate clinically for gastroparesis. 4. Colonic diverticulosis but no evidence of acute diverticulitis. 5. Moderate size left-sided fat-containing inguinal hernia, only partially included within the field of view. 6. Prominent urinary bladder distention, correlate clinically for urinary retention.
--- NOTE | 2024-04-06 07:49 | ECG_ITS ---
Test Reason : sepsis work up Blood Pressure : / mmHG Vent. Rate : 096 BPM Atrial Rate : 096 BPM P-R Int : 176 ms QRS Dur : 086 ms QT Int : 344 ms P-R-T Axes : 046 027 -34 degrees QTc Int : 434 ms Normal sinus rhythm Nonspecific T wave abnormality Abnormal ECG When compared with ECG of 30-MAY-2016 12:56, Nonspecific T wave abnormality, worse in Anterior leads Referred By: Alma Rosa Ren Electronically Signed By:OPAL PERRY MD
--- NOTE | 2024-04-06 07:54 | ED.ABDPAIN ---
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 Pt states he took some pepto bismal and vomited following onset, he was able to take his HTN medications though. He has never experienced something similar. Pt last bm was at 0300, minimal. Denies chest pain, nausea, fever, back pain, sob, shoulder pain, jaw pain, headaches. Denies any abdominal surgeries, except 30 years ago tissue biopsy in abdomen. Related Data Previous Rx's ?Medication ?Instructions ?Recorded bisacodyl 5 mg tablet,delayed 10 mg (2 x 5 mg) PO BEDTIME 2 days 08/11/20 release (Dulcolax (bisacodyl)) #4 tabs omeprazole 40 mg capsule,delayed 40 mg PO DAILY 30 days #30 caps 08/11/20 release polyethylene glycol 3350 17 238 g PO ONCE 1 day #238 grams 09/01/20 gram/dose oral powder (Miralax) levofloxacin 500 mg tablet 500 mg PO DAILY 10 days #10 tabs 07/31/21 morphine 15 mg immediate release 15 mg PO Q6H PRN pain 4 days #18 07/31/21 tablet tabs Allergies Allergy/AdvReac Type Severity Reaction Status Date / Time No Known Allergies Allergy Verified 04/06/24 07:44 [No Known Allergies*] [facility] Past Medical History Medical History Elevated cholesterol GERD (gastroesophageal reflux disease) HTN (hypertension) Surgical History H/O knee surgery Hx of colonoscopy Family History Family History Mother HTN (hypertension) Diabetes Hypercholesteremia Myocardial infarction Sister Cancer Social History Social History Household Members: Spouse Alcohol intake: current Alcohol intake frequency: holidays/special occasions only Cigarettes Per Day: 5 Years Smoked: 20+ Advance Directives: No Advance Directives Information Provided: No Physical Exam ED Vital Signs: Vital Signs - 24 hr 04/06/24 07:40 04/06/24 09:03 04/06/24 09:37 Temperature 98.7 F 97.9 F Pulse Rate 101 H 82 Respiratory Rate 22 H 19 20 Blood Pressure 69/51 L 168/99 H Pulse Oximetry 93 96 Oxygen Delivery Method Room Air Room Air Oxygen Flow Rate 04/06/24 10:00 04/06/24 10:28 Temperature 98.2 F Pulse Rate 73 77 Respiratory Rate 18 14 Blood Pressure 151/96 H 145/92 H Pulse Oximetry 96 96 Oxygen Delivery Method Room Air Nasal Cannula Oxygen Flow Rate 2 2 BMI result Body Mass Index 40.2 And a right I do not believe that these vital signs are accurate, blood pressure is likely inaccurate. When patient arrived into the room to blood pressure readings were repeated on bilateral arms which were both hypertensive and within close proximity in terms of range. Low are should say low suspicion for acute abdominal aortic dissection Appearance: Alert.? Oriented X3.? No acute distress.? Head: Normocephalic, atraumatic, no step-offs or deformities Eyes: Pupils equal, round and reactive to light.? Neck: Normal inspection.? Neck supple.? CVS: Normal heart rate and rhythm.? Pulses normal.? Respiratory: No respiratory distress.? Breath sounds normal.? Abdomen: Tense, distended, normoactive bowel sounds throughout and very tender to palpation in all 4 quadrants. Skin: Skin warm and dry.? Normal skin color.? Normal skin turgor.? Extremities: No lower extremity edema.? No calf ttp. 5/5 strength to bilateral upper and lower extremities Back: No midline tenderness, no C-spine tenderness, full range of motion, no CVA tenderness bilaterally Neuro: Oriented X 3.? No motor deficit.? No sensory deficit. CN 2-12 intact Course Reevaluation(s) Reevaluation #1: Patient's CBC with slight leukocytosis and shift, no electrolyte abnormalities needing intervention elevated sugar 169, elevated lactic acid 2.1, repeat lactic 1.6. Patient was given fluids, antibiotics. Initial troponin 8.5 with a nonischemic EKG unlikely ACS or dissection. Normal lipase. Patient continues to complain of pain despite multiple pain meds, more pain meds will be given. CT abdomen pelvis with hepatomegaly and hepatic steatosis cholelithiasis but no evidence of acute cholecystitis. Moderate gastric distention possible gastroparesis in the setting that this is new diabetes this could be diabetic gastroparesis. Colonic diverticulosis with no evidence of acute diverticulitis moderate size left-sided fat containing inguinal hernia, no signs of involvement of the bowel or necrosis. Prominent urinary bladder distention patient has used the restroom since this CT scan was done. Will do a bladder scan at this time to ensure he is not retaining. Time: 11:30 Reevaluation #2: Patient is still in significant pain. Will give more Dilaudid. Time: 12:02 Reevaluation #3: Plan hospital admission Time: 12:03 Medical Decision Making Medical Decision Making [facility] Narrative: 54 year old M presenting with acute abdominal pain starting at 0200 this morning severity 06/07 Physical examination revealed uncomfortable patient with rigid abdomen, hypertensive, and tachycardia Hx and pe concerning for aortic dissection vs SBO vs bowel rupture vs cholecystitis vs pancreatitis vs appendicitis. Unlikely splenic rupture, mesenteric ischemia, nephrolithiasis,AAA Pending imaging, urine, labs Differential Diagnosis Differential Diagnoses: The differential diagnosis associated with the presentation includes Hx and pe concerning for aortic dissection vs SBO vs bowel rupture vs cholecystitis vs pancreatitis vs appendicitis. Unlikely splenic rupture, mesenteric ischemia, nephrolithiasis,AAA Admission/Observation Consideration of admission/observation: Escalation of care including admission/observation considered posible Lab Data [facility] Lab Attestation statement: I reviewed the patient's lab results. 04/06/24 08:28 04/06/24 08:27 Labs: Lab Results 04/06/24 04/06/24 04/06/24 Range/Units 08:02 08:27 08:28 WBC 13.2 H (4.8-10.8) X10*3/uL RBC 5.32 (4.60-5.80) X10*6/uL Hgb 16.1 (14.0-18.0) g/dl Hct 45.4 (42.0-52.0) % MCV 85.3 (80.0-98.0) fL MCH 30.3 (27.0-33.0) pg MCHC 35.5 (31.0-36.0) g/dl RDW 13.2 (11.0-16.0) % Plt Count 268 (160-400) X10*3/uL MPV 11.1 (9.4-12.4) fL Immature Gran % (Auto) 0.9 H (0.0-0.4) % Neut % (Auto) 80.6 H (45-73) % Lymph % (Auto) 12.3 L (20-40) % Keith % (Auto) 5.8 (2-11) % Eos % (Auto) 0.1 (0-4) % Baso % (Auto) 0.3 (0-2) % Lymph # (Auto) 1.6 (1.2-4.9) X10*3/uL Keith # (Auto) 0.8 (0.1-1.2) X10*3/uL Eos # (Auto) 0.0 (0.0-0.4) X10*3/uL Baso # (Auto) 0.0 (0.0-0.2) X10*3/uL Abs Immat Gran (auto) 0.12 H (0.00-0.03) X10*3/uL Absolute Neuts (auto) 10.6 H (2.0-8.3) x10*3/uL Absolute Nucleated RBC 0.000 (0.0-0.012) X10*3/uL Nucleated RBC % (auto) 0.0 (0.0-0.2) /100WBC PT 11.6 (11.1-13.3) SEC INR 1.0 (0.9-1.1) Sodium 138 (135-145) mmol/L Potassium 4.8 D (3.3-5.1) mmol/L Chloride 105 (96-108) mmol/L Carbon Dioxide 23 (22-29) mmol/L Anion Gap 15 (12-20) BUN 15 (9-16) mg/dL Creatinine 1.17 (0.5-1.4) mg/dL Estim Creat Clear Calc 94.3 Estimated GFR > 60 POC Glucose 169 H (60-115) mg/dL Random Glucose 152 H (60-115) mg/dL Lactic Acid 2.1 H* (0.5-2.0) mmol/L Lactic Acid F/U @ 2Hr (0.5-2.0) mmol/L Calcium 11.5 H D (8.4-10.2) mg/dL Magnesium 1.8 (1.6-2.6) mg/dL Total Bilirubin 0.4 (0.0-1.0) mg/dL AST 40 H (5-37) U/L ALT 74 H (0-40) U/L Alkaline Phosphatase 124 H (39-117) U/L Troponin I High Sens 8.5 (<3.5-35.0) ng/L Total Protein 7.8 (6.5-8.0) g/dL Albumin 4.3 (3.5-5.0) g/dL Lipase 21 (8-78) U/L Urine Color Urine Appearance Urine pH (5.0-9.0) Ur Specific Lit[place] (1.005-1.025) Urine Protein (Neg-Trace) mg/dL Urine Glucose (UA) (Negative) mg/dL Urine Ketones (Negative) mg/dL Urine Blood (Negative) Urine Nitrite (Negative) Ur Leukocyte Esterase (Negative) 04/06/24 04/06/24 Range/Units 09:59 10:42 WBC (4.8-10.8) X10*3/uL RBC (4.60-5.80) X10*6/uL Hgb (14.0-18.0) g/dl Hct (42.0-52.0) % MCV (80.0-98.0) fL MCH (27.0-33.0) pg MCHC (31.0-36.0) g/dl RDW (11.0-16.0) % Plt Count (160-400) X10*3/uL MPV (9.4-12.4) fL Immature Gran % (Auto) (0.0-0.4) % Neut % (Auto) (45-73) % Lymph % (Auto) (20-40) % Keith % (Auto) (2-11) % Eos % (Auto) (0-4) % Baso % (Auto) (0-2) % Lymph # (Auto) (1.2-4.9) X10*3/uL Keith # (Auto) (0.1-1.2) X10*3/uL Eos # (Auto) (0.0-0.4) X10*3/uL Baso # (Auto) (0.0-0.2) X10*3/uL Abs Immat Gran (auto) (0.00-0.03) X10*3/uL Absolute Neuts (auto) (2.0-8.3) x10*3/uL Absolute Nucleated RBC (0.0-0.012) X10*3/uL Nucleated RBC % (auto) (0.0-0.2) /100WBC PT (11.1-13.3) SEC INR (0.9-1.1) Sodium (135-145) mmol/L Potassium (3.3-5.1) mmol/L Chloride (96-108) mmol/L Carbon Dioxide (22-29) mmol/L Anion Gap (12-20) BUN (9-16) mg/dL Creatinine (0.5-1.4) mg/dL Estim Creat Clear Calc Estimated GFR POC Glucose (60-115) mg/dL Random Glucose (60-115) mg/dL Lactic Acid (0.5-2.0) mmol/L Lactic Acid F/U @ 2Hr 1.6 (0.5-2.0) mmol/L Calcium (8.4-10.2) mg/dL Magnesium (1.6-2.6) mg/dL Total Bilirubin (0.0-1.0) mg/dL AST (5-37) U/L ALT (0-40) U/L Alkaline Phosphatase (39-117) U/L Troponin I High Sens (<3.5-35.0) ng/L Total Protein (6.5-8.0) g/dL Albumin (3.5-5.0) g/dL Lipase (8-78) U/L Urine Color Yellow Urine Appearance Clear Urine pH 6.5 (5.0-9.0) Ur Specific Lit[place] 1.025 (1.005-1.025) Urine Protein Negative (Neg-Trace) mg/dL Urine Glucose (UA) Negative (Negative) mg/dL Urine Ketones Negative (Negative) mg/dL Urine Blood Negative (Negative) Urine Nitrite Negative (Negative) Ur Leukocyte Esterase Negative (Negative) Independent Interpretation I performed an independent interpretation of an: EKG (Vent. Rate : 096 BPM Atrial Rate : 096 BPM P-R Int : 176 ms QRS Dur : 086 ms QT Int : 344 ms P-R-T Axes : 046 027 -34 degrees QTc Int : 434 ms Normal sinus rhythm Nonspecific T wave abnormality Abnormal ECG When compared with ECG of 30-MAY-2016 12:56, Nonspecific T wav), Plain X-Ray (XR/XR chest 1V IMPRESSION: Low lung volumes with bronchovascular crowding and bibasilar subsegmental atelectasis. No consolidation, pleural effusion or pneumothorax. ) and CT Scan ( CT/CT abdomen pelvis w IV con IMPRESSION: 1. Hepatomegaly and hepatic steatosis. 2. Cholelithiasis but no evidence of acute cholecystitis. 3. Moderate gastric distention, correlate clinically for gastroparesis. 4. Colonic diverticulosis but no evidence of acute diverticulitis. 5. Moderate size) Radiology Impression Discussion of test interpretation with radiology: I have reviewed the radiologist's reading. External Record Review External record reviewed: Office record, Outpatient record, Prior outpatient labs and Prior outpatient radiology Prescription Management I considered prescription management with: Pain Medication Chronic Conditions Patient?s care impacted by: Hypertension and Other (obesity, gerd, blind in one eye, tubular adenoma of colon ) Medications Administered Discontinued Medications Generic Name Dose Route Start Last Admin Trade Name Freq PRN Reason Stop Dose Admin Fentanyl 50 mcg 04/06/24 09:06 04/06/24 09:37 Fentanyl Citrate/Pf 100 Mcg/2 Ml Vial IVPUSH 04/06/24 09:07 50 mcg ONCE ONE Administration Protocol Hydromorphone HCl 1 mg 04/06/24 08:23 04/06/24 08:31 Hydromorphone Hcl 1 Mg/Ml Syringe IVPUSH 04/06/24 08:24 1 mg ONCE ONE Administration Protocol Ceftriaxone Sodium 1 gm/ 50 mls @ 100 mls/hr 04/06/24 07:45 04/06/24 08:30 Sodium Chloride IV 04/06/24 08:14 Infused ONCE ONE Infusion Sodium Chloride 3,810 mls @ 3,810 mls/hr 04/06/24 07:45 04/06/24 09:30 Ns 30 ml/kg infuse over 1 hr (3810 ml) 04/06/24 08:44 Infused IV Infusion .Q1H STA Iohexol 100 ml 04/06/24 09:25 08/09/24 09:26 Iohexol 350 Mg/Ml 100 Ml Infus..Btl IV 04/06/24 09:26 100 ml ONCE ONE Administration Morphine Sulfate 4 mg 04/06/24 07:51 04/06/24 08:04 Morphine Sulfate 4 Mg/Ml Cartridge IVPUSH 04/06/24 07:52 4 mg ONCE ONE Administration Protocol Critical Care Time Critical Care Time Critical Care Time: Yes Total Critical Care Time: 35 Attestation: I attest to this time spent taking care of the patient, obtaining history, physical, reviewing labs, imaging, speaking to my attending, specialist or hospitalist. Discharge Plan Discharge Clinical Impression: Gastroparesis, Abdominal pain Patient Disposition: Admitted As Inpatient Prescriptions: No Action polyethylene glycol 3350 [Miralax] 17 gram/dose powder 238 g PO ONCE 1 Days Qty: 238 0RF Rx Instructions: Take as directed for bowel prep prior to colonoscopy levofloxacin 500 mg tablet 500 mg PO DAILY 10 Days Qty: 10 0RF morphine 15 mg tablet 15 mg PO Q6H PRN (Reason: pain) 4 Days Qty: 18 0RF omeprazole 40 mg capsule,delayed release(DR/EC) 40 mg PO DAILY 30 Days Qty: 30 3RF bisacodyl [Dulcolax (bisacodyl)] 5 mg tablet,delayed release (DR/EC) 10 mg PO BEDTIME 2 Days Qty: 4 0RF Print Language: Indonesian
[2024-04-06] MEDS: Morphine Sulfate 4 MG/ML CARTRIDGE IVPUSH (08:04)
[2024-04-06] MEDS: cefTRIAXone sodium 1 GM in 0.9 % Sodium Chloride 50 ML IV (08:20)
[2024-04-06] MEDS: HYDROmorphone HCl 1 MG/ML SYRINGE IVPUSH ×2 (08:31→12:02)
[2024-04-06 08:34] LABS: MANUAL DIFF FLAG NO
[2024-04-06 08:36] LABS: Basophils Percent Auto 0.3 % (0-2); Eosinophils Percent Auto 0.1 % (0-4); Hematocrit 45.4 % (42.0-52.0); Hemoglobin 16.1 g/dl (14.0-18.0); Imm Gran Abs Auto 0.12 X10*3/uL (0.00-0.03); Imm Gran Pct Auto 0.9 % (0.0-0.4); Lymphocytes Absolute Auto 1.6 X10*3/uL (1.2-4.9); Lymphocytes Percent Auto 12.3 % (20-40); Mean Corpuscular HGB Conc 35.5 g/dl (31.0-36.0); Mean Corpuscular Hemoglobin 30.3 pg (27.0-33.0); Mean Corpuscular Volume 85.3 fL (80.0-98.0); Mean Platelet Volume 11.1 fL (9.4-12.4); Monocytes Absolute Auto 0.8 X10*3/uL (0.1-1.2); Monocytes Percent Auto 5.8 % (2-11); Neutrophils Absolute Auto 10.6 x10*3/uL (2.0-8.3); Neutrophils Percent Auto 80.6 % (45-73); Platelet Count 268 X10*3/uL (160-400); Red Blood Count 5.32 X10*6/uL (4.60-5.80); Red Cell Distribution Width 13.2 % (11.0-16.0); White Blood Count 13.2 X10*3/uL (4.8-10.8)
[2024-04-06 08:41] LABS: Prothrombin Time 11.6 SEC (11.1-13.3)
[2024-04-06 08:41] LABS: Glucose, Whole Blood 169 mg/dL (60-115)
[2024-04-06 09:00] LABS: Troponin-I High Sensitivity 8.5 ng/L (<3.5-35.0)
[2024-04-06 09:02] LABS: Alanine Aminotransferase 74 U/L (0-40); Albumin Level 4.3 g/dL (3.5-5.0); Alkaline Phosphatase 124 U/L (39-117); Anion Gap 15 (12-20); Aspartate Amino Transferase 40 U/L (5-37); Bilirubin Total 0.4 mg/dL (0.0-1.0); Blood Urea Nitrogen 15 mg/dL (9-16); Calcium 11.5 mg/dL (8.4-10.2); Carbon Dioxide 23 mmol/L (22-29); Chloride 105 mmol/L (96-108); Creatinine Clr Calc Pharmacy 94.3; Estimated Glomerular Filt Rate > 60; Glucose Random 152 mg/dL (60-115); Lipase 21 U/L (8-78); Magnesium 1.8 mg/dL (1.6-2.6); Potassium 4.8 mmol/L (3.3-5.1); Sodium 138 mmol/L (135-145); Total Protein 7.8 g/dL (6.5-8.0)
[2024-04-06 09:05] LABS: Lactic Acid 2.1 mmol/L (0.5-2.0)
[2024-04-06] MEDS: iohexoL 350 MG/ML 100 ML INFUS..BTL IV (09:26)
[2024-04-06] MEDS: fentaNYL citrate/PF 100 MCG/2 ML VIAL 50 MCG IVPUSH (09:37)
--- NOTE | 2024-04-06 09:57 | PC.NURSE ---
Per provider, patient only received 2500 of his IVF, 1 L not infused,
[2024-04-06 10:08] LABS: Appearance Urine Clear; Color Urine Yellow; Glucose Urine UA Negative (Negative); Leukocyte Esterase Urine Negative (Negative); Nitrite Urine Negative (Negative); PH 6.5 (5.0-9.0); Specific Gravity - Urine 1.025 (1.005-1.025); Urine Blood Negative (Negative); Urine Ketones Negative (Negative); Urine Protein Negative (Neg-Trace)
[2024-04-06 10:36] LABS: Reflex Lactate? Lactic Acid Added
[2024-04-06 11:00] LABS: ~Lactic Acid-LAB USE ONLY 1.6 mmol/L (0.5-2.0)
[2024-04-06 12:26] LABS: Troponin-I High Sensitivity 8.4 ng/L (<3.5-35.0)
[2024-04-06] MEDS: ondansetron HCL 4 MG/2 ML VIAL IVPUSH (12:54)
[2024-04-06 13:38] LABS: Amphetamine Screen Urine Not Detected (Not Detect); Barbiturates, Urine Not Detected (Not Detect); Benzodiazepines Screen Urine Not Detected (Not Detect); Buprenorphine Scr Not Detected (Not Detect); Cannabinoid Screen Urine Not Detected (Not Detect); Cocaine Screen Urine POSITIVE (Not Detect); Fentanyl, urine Not Detected (Not Detect); Methadone Screen, Urine Not Detected (Not Detect); Opiate Screen Urine POSITIVE (Not Detect); Oxycodone Screen Urine Not Detected (Not Detect); Phencyclidine Screen Urine Not Detected (Not Detect)
--- NOTE | 2024-04-06 13:52 | PHA.MEDREC ---
Addendum entered by Eric Bourne caroline 04/06/24 14:04: med rec verified Original Note: Pharmacy Consult ? Medication Reconciliation Pharmacy has completed the medication reconciliation. Confirmed medications with patient. He states he takes all his Blood Pressure medications in the morning and his High Cholesterol medication he takes at night.
--- NOTE | 2024-04-06 13:57 | PM.IMHP ---
History of Present Illness Date of Service: 04/06/24 Attending physician on admission: Jesi Coats Chief Complaint: severe abd pain 54-year-old male with history of hypertension, history of CVA with sequela of left-sided blindness, GERD, hyperlipidemia presented to the ED earlier this morning for evaluation of severe epigastric pain that started last night around 21:00 after eating beef stew. He reports he took Pepto-Bismol and subsequently vomited but has not had any episodes of nausea, vomiting. No diarrhea, melena, hematochezia. Denies chest pain, shortness of breath, lightheadedness. He reports the pain is sharp, stabbing, and burning without any radiation. He reports it is constant and is unable to identify any alleviating or exacerbating factors. On arrival, was documented as hypotensive at 69/51, however SBP has not been lower than 144 since, suspect this was an error. He was also initially tachycardic at 01:01 and tachypneic to 22, likely secondary to pain. He has a leukocytosis of 13.2. Renal function is baseline, electrolyte levels are normal. Glucose 169. Lactic acid 2.1 on repeat 1.9. AST 40, ALT 74, alkaline phosphatase 124. Urinalysis unremarkable. Urine tox screen positive for opiates and cocaine. Lipase within normal limits. He adamantly denies any illicit drug use. He does report smoking 5 cigarettes on a daily basis and denies alcohol use. CT abdomen pelvis shows hepatomegaly and hepatic steatosis cholelithiasis, but no cholecystitis. There is moderate gastric distention , correlate clinically for gastroparesis. There is also prominent urinary bladder distention. Bladder scan showed 478 cc but then urinated 400 cc. In the ED, has received 2 mg IV hydromorphone, 4 mg morphine, 50 mcg fentanyl, ondansetron, 3.8 L IVF. He does not take any aspirin or other blood thinners. Reports only occasional NSAID use and has not used in about 1 week. Review of Systems Review of Systems: Yes all other systems are reviewed and are negative [facility] Medical History GERD (gastroesophageal reflux disease) Elevated cholesterol HTN (hypertension) Family History Mother HTN (hypertension) Diabetes Hypercholesteremia Myocardial infarction Sister Cancer Surgical History H/O knee surgery Hx of colonoscopy Social History Household Members: Spouse Alcohol intake: current Alcohol intake frequency: does not drink Cigarettes Per Day: 5 Years Smoked: 20+ Smoked in Last 30 Days: Yes Use of substances other than those prescribed or required for medical reasons: No Advance Directives: No Advance Directives Information Provided: No Do you have a plan to hurt others: No Plan Meds Allergies Allergy/AdvReac Type Severity Reaction Status Date / Time No Known Allergies Allergy Verified 04/06/24 07:44 [No Known Allergies*] Active Medications: Current Medications Acetaminophen (Acetaminophen 325 Mg Tablet) 650 mg PO Q6H PRN PRN Reason: Pain, Mild (Pain Scale 1-3), fever or headache Al Hydroxide/Mg Hydroxide (Magnesium Hydrox/Alum Hydrox 30 Ml Oral.Susp) 30 ml PO Q6H PRN PRN Reason: Dyspepsia Amlodipine Besylate (Amlodipine Besylate 5 Mg Tablet) 5 mg PO DAILY LEANDER; Protocol Atorvastatin Calcium (Atorvastatin Calcium 80 Mg Tablet) 80 mg PO BEDTIME LEANDER Calcium Carbonate (Calcium Carbonate 750 Mg Tab.Chew) 750 mg PO Q4H PRN PRN Reason: Heartburn Magnesium Hydroxide (Milk Of Magnesia 30 Ml Oral.Susp) 30 ml PO DAILY PRN PRN Reason: Constipation Melatonin (Melatonin 3 Mg Tablet) 6 mg PO BEDTIME PRN PRN Reason: Insomnia Metoprolol Succinate (Metoprolol Succinate Er 50 Mg Tab.Er.24h) 50 mg PO DAILY LEANDER; Protocol Non-Formulary Medication (Losartan-Hydrochlorothiazide) 1 tab PO DAILY LEANDER Pantoprazole Sodium (Pantoprazole Sodium 40 Mg/10 Ml Vial) 40 mg IVPUSH BID@0630,1630 [facility] Polyethylene Glycol (Polyethylene Glycol 3350 17 Gm Powd.Pack) 238 gm PO ONCE [facility] Sodium Chloride (0.9 % Sodium Chloride Flush 3 Ml Syringe) 3 ml IVFLUSH QSHIFT [facility] Home Medications ?Medication ?Instructions ?Recorded ?Confirmed ?Last Taken ?Type amlodipine 5 mg tablet 5 mg PO DAILY 04/06/24 04/06/24 04/06/24 04:30 History atorvastatin 80 mg tablet 80 mg PO BEDTIME 04/06/24 04/06/24 04/06/24 04:30 History losartan 100 1 tab PO DAILY 04/06/24 04/06/24 04/06/24 04:30 History mg-hydrochlorothiazide 25 mg tablet metoprolol succinate 50 mg 50 mg PO DAILY 04/06/24 04/06/24 04/06/24 04:30 History tablet,extended release 24 hr Physical Exam Vital Signs and Narrative: Vital Signs: Last Vital Signs Temp 98.6 F 04/06/24 12:15 Pulse 63 04/06/24 12:15 Resp 18 04/06/24 12:15 BP 144/77 H 04/06/24 12:15 Pulse Ox 99 04/06/24 12:15 O2 Del Method Room Air 04/06/24 12:15 O2 Flow Rate 2 04/06/24 10:28 BMI result Body Mass Index 40.2 Constitutional - Awake and Alert, No apparent distress Eyes - PERRLA, EOMI Cardiovascular - S1S2, RRR, No edema Respiratory - Normal lung expansion, Normal respiratory effort, No respiratory distress, CTA bilaterally Gastrointestinal - significant epigastric ttp without rebound or guarding. No RUQ ttp or polanco sign. ND; +BS Extremities - no calf tenderness bilaterally, no swelling Skin - Warm/Dry Neurological - Alert & oriented x3 Psychological - Appropriate affect Results Labs 04/06/24 08:28 04/06/24 08:27 Labs: Laboratory Results - last 24 hr 04/06/24 04/06/24 04/06/24 08:02 08:27 08:28 MCV 85.3 MCH 30.3 MCHC 35.5 RDW 13.2 Plt Count 268 MPV 11.1 Immature Gran % (Auto) 0.9 H Neut % (Auto) 80.6 H Lymph % (Auto) 12.3 L Terry % (Auto) 5.8 Eos % (Auto) 0.1 Baso % (Auto) 0.3 Lymph # (Auto) 1.6 Terry # (Auto) 0.8 Eos # (Auto) 0.0 Baso # (Auto) 0.0 Abs Immat Gran (auto) 0.12 H Absolute Neuts (auto) 10.6 H Absolute Nucleated RBC 0.000 Nucleated RBC % (auto) 0.0 PT 11.6 INR 1.0 Anion Gap 15 Estim Creat Clear Calc 94.3 Estimated GFR > 60 POC Glucose 169 H Random Glucose 152 H Lactic Acid 2.1 H* Lactic Acid F/U @ 2Hr Calcium 11.5 H D Magnesium 1.8 Total Bilirubin 0.4 AST 40 H ALT 74 H Alkaline Phosphatase 124 H Troponin I High Sens 8.5 Total Protein 7.8 Albumin 4.3 Lipase 21 Urine Color Urine Appearance Urine pH Ur Specific Dodson Urine Protein Urine Glucose (UA) Urine Ketones Urine Blood Urine Nitrite Ur Leukocyte Esterase Urine Opiates Screen Ur Buprenorphine Scrn Ur Oxycodone Screen Urine Methadone Screen Urine Fentanyl Screen Ur Barbiturates Screen Ur Phencyclidine Scrn Ur Amphetamines Screen U Benzodiazepines Scrn Urine Cocaine Screen U Marijuana (THC) Screen 04/06/24 04/06/24 04/06/24 09:59 10:42 11:55 MCV MCH MCHC RDW Plt Count MPV Immature Gran % (Auto) Neut % (Auto) Lymph % (Auto) Terry % (Auto) Eos % (Auto) Baso % (Auto) Lymph # (Auto) Terry # (Auto) Eos # (Auto) Baso # (Auto) Abs Immat Gran (auto) Absolute Neuts (auto) Absolute Nucleated RBC Nucleated RBC % (auto) PT INR Anion Gap Estim Creat Clear Calc Estimated GFR POC Glucose Random Glucose Lactic Acid Lactic Acid F/U @ 2Hr 1.6 Calcium Magnesium Total Bilirubin AST ALT Alkaline Phosphatase Troponin I High Sens 8.4 Total Protein Albumin Lipase Urine Color Yellow Urine Appearance Clear Urine pH 6.5 Ur Specific Dodson 1.025 Urine Protein Negative Urine Glucose (UA) Negative Urine Ketones Negative Urine Blood Negative Urine Nitrite Negative Ur Leukocyte Esterase Negative Urine Opiates Screen POSITIVE H Ur Buprenorphine Scrn Not Detected Ur Oxycodone Screen Not Detected Urine Methadone Screen Not Detected Urine Fentanyl Screen Not Detected Ur Barbiturates Screen Not Detected Ur Phencyclidine Scrn Not Detected Ur Amphetamines Screen Not Detected U Benzodiazepines Scrn Not Detected Urine Cocaine Screen POSITIVE H U Marijuana (THC) Screen Not Detected Imaging Radiologist's Impressions: Impressions Chest X-Ray 04/06/24 08:51 IMPRESSION: Low lung volumes with bronchovascular crowding and bibasilar subsegmental atelectasis. No consolidation, pleural effusion or pneumothorax. Abdomen/Pelvis CT 04/06/24 09:40 IMPRESSION: 1. Hepatomegaly and hepatic steatosis. 2. Cholelithiasis but no evidence of acute cholecystitis. 3. Moderate gastric distention, correlate clinically for gastroparesis. 4. Colonic diverticulosis but no evidence of acute diverticulitis. 5. Moderate size left-sided fat-containing inguinal hernia, only partially included within the field of view. 6. Prominent urinary bladder distention, correlate clinically for urinary retention. Assessment and Plan (1) Abdominal pain: Status: Acute Plan 54-year-old male with history of hypertension, history of CVA with sequela of left-sided blindness, GERD, hyperlipidemia to be observed for intractable epigastric pain #ACute epigastric pain- likely acute gastritis -CT abd/pelvis negative for acute abnormality -Lipase wnl -IV ppi -maalox now and prn -hold on further narcotics # acute hyperglycemia -hemoglobin A1c pending # polysubstance abuse -positive for cocaine and opiates, addiction Medicine consult #SIRS criteria -tachycardia/tachypnea due to pain and resolved. Leukocytosis likely in setting of cocaine use #Hypotension -suspect this was documented in error given pt has not had any other SBP <140. No severe sepsis #HTN -continue amlodipine, losartan-hydrochlorothiazide, metoprolol # history CVA/hyperlipidemia -continue statin. Not on aspirin DVT prophylaxis-Lovenox Full code Quality Stroke Does the patient have a stroke diagnosis?: No VTE Prior VTE?: No VTE Risk Level:: Medical - moderate - high VTE Device Contraindication: Treatment Not Indicated VTE Drug Contraindication: N/A - Med Ordered
[2024-04-06] MEDS: Enoxaparin Sodium 40 MG/0.4 ML SYRINGE SUBCUT (14:12)
[2024-04-06] MEDS: Pantoprazole Sodium 40 MG/10 ML VIAL IVPUSH ×2 (14:12→16:51)
[2024-04-06] MEDS: Magnesium Hydrox/Alum Hydrox 30 ML ORAL.SUSP PO ×2 (14:12→16:51)
[2024-04-06] MEDS: 0.9 % Sodium Chloride Flush 3 ML SYRINGE IVFLUSH (16:51)
--- NOTE | 2024-04-06 17:00 | PC.NURSE ---
pt is alert and oriented, skin appropriate for ethnicity, respirations even and unlabored, pt is reporting generalized abd pain 7/10, bowel sounds in all 4 quadrants, abd is distended and slightly firm to the touch, pt reports that his abd is not usually this distended pt does have sleep apnea and uses cpap- pt unable to get his from home, md is ordering a cpap
[2024-04-06 17:03] LABS: Glucose, Whole Blood 137 mg/dL (60-115)
[2024-04-06 18:46] LABS: Estimated Average Glucose 140 mg/dL; Hemoglobin A1c % 6.5 % (<6.0)
--- NOTE | 2024-04-06 20:26 | MHC.EDTECH ---
This tech took over care of patient at 1900,hourly rounds and vitals completed,patient ambulated to the bathroom with a steady gait,patient is back in bed resting quietly.patient asked to go on C-Pap,respiratory called at this time,RN is aware.call red in reach
[2024-04-06] MEDS: Atorvastatin Calcium 80 MG TABLET PO (20:29)
[2024-04-06] MEDS: Nicotine 14 MG PATCH.TD24 TRANSDERMA (21:15)
--- NOTE | 2024-04-06 21:24 | PC.NURSE ---
pt requesting nicotine patch, hospitalist notified, pt medicated per OCT, patch placed to R shoulder
--- NOTE | 2024-04-06 22:31 | MHC.EDTECH ---
Patient ambulated to the bathroom with a steady gait.
--- NOTE | 2024-04-06 22:51 | PC.NURSE ---
pt reporting his abdomen feels sensitive and hurts when moving, described as sore but not painful
[2024-04-06] MEDS: Acetaminophen 325 MG TABLET 650 MG PO (23:35)
--- NOTE | 2024-04-06 23:46 | MHC.EDTECH ---
Hourly rounds and vitals completed, BP is elevated LT 169/106 RT 161/100, RN was made aware.call red in reach
--- NOTE | 2024-04-07 01:17 | MHC.EDTECH ---
Patient ambulated to the bathroom,patient is sitting up in recliner watching TV,per request patient was given two cups of apple juice.
[2024-04-07 03:43] VITALS: BP 151/97; PULSE 105; RESP 18; TEMP 36.7; O2SAT 97
--- NOTE | 2024-04-07 03:44 | MHC.EDTECH ---
Hourly rounds and vitals completed,patient ambulated to the bathroom, apple juice given per request ,patient is sitting in recliner watching TV, he stated to this tech he wants to go home for the morning around 8am RN was made aware.
[2024-04-07] MEDS: Pantoprazole Sodium 40 MG/10 ML VIAL IVPUSH (05:53)
[2024-04-07 06:07] LABS: Basophils Percent Auto 0.2 % (0-2); Hematocrit 46.4 % (42.0-52.0); Hemoglobin 16.9 g/dl (14.0-18.0); Imm Gran Abs Auto 0.18 X10*3/uL (0.00-0.03); Imm Gran Pct Auto 0.9 % (0.0-0.4); Lymphocytes Absolute Auto 1.4 X10*3/uL (1.2-4.9); Lymphocytes Percent Auto 7.1 % (20-40); MANUAL DIFF FLAG SCAN; Mean Corpuscular HGB Conc 36.4 g/dl (31.0-36.0); Mean Corpuscular Volume 85.1 fL (80.0-98.0); Mean Platelet Volume 11.3 fL (9.4-12.4); Monocytes Absolute Auto 1.6 X10*3/uL (0.1-1.2); Neutrophils Absolute Auto 16.7 x10*3/uL (2.0-8.3); Neutrophils Percent Auto 83.8 % (45-73); Platelet Count 231 X10*3/uL (160-400); Red Blood Count 5.45 X10*6/uL (4.60-5.80); Red Cell Distribution Width 13.6 % (11.0-16.0); SCAN SMEAR FLAG 1; White Blood Count 19.9 X10*3/uL (4.8-10.8)
--- NOTE | 2024-04-07 06:17 | MHC.EDTECH ---
Patient ambulated to the bathroom,apple juice given per request
[2024-04-07 06:19] LABS: Anion Gap 14 (12-20); Blood Urea Nitrogen 10 mg/dL (9-16); Calcium 10.7 mg/dL (8.4-10.2); Carbon Dioxide 24 mmol/L (22-29); Chloride 104 mmol/L (96-108); Creatinine Clr Calc Pharmacy 105.1; Estimated Glomerular Filt Rate > 60; Glucose Random 129 mg/dL (60-115); Potassium 3.9 mmol/L (3.3-5.1); Sodium 138 mmol/L (135-145)
--- NOTE | 2024-04-07 06:55 | MHC.EDTECH ---
Patient ambulated to the bathroom,patient is fully dressed and stated he wants to leave,RN is aware
[2024-04-07 06:58] LABS: SLIDE REVIEW VERIFIED
[2024-04-07 09:09] VITALS: BP 150/99
[2024-04-07] MEDS: amLODIPine Besylate 5 MG TABLET PO (09:09)
[2024-04-07 09:12] VITALS: BP 150/99
[2024-04-07] MEDS: Losartan Potassium 50 MG TABLET 100 MG PO (09:12)
[2024-04-07] MEDS: 0.9 % Sodium Chloride Flush 3 ML SYRINGE IVFLUSH (09:12)
[2024-04-07 09:13] VITALS: BP 150/99; PULSE 98
[2024-04-07] MEDS: Metoprolol Succinate ER 50 MG TAB.ER.24H PO (09:13)
[2024-04-07 09:40] VITALS: BP 150/99
[2024-04-07 10:03] VITALS: BP 150/99; PULSE 86; RESP 18; TEMP 37.1; O2SAT 98
--- NOTE | 2024-04-07 10:45 | PM.DS ---
DS: Providers Provider Date of Service: 04/07/24 Date of admission: 04/06/24 13:43 Primary care physician: Kamille Dixon MD Consults: 04/06/24 16:30 Addiction Medicine Routine Consulting Provider: Addiction Covering Reason for consultation: Polysubstance abuse DS: Diagnosis Discharge Diagnosis (1) Abdominal pain: Status: Acute DS: Summary Hospital Course Hospital Course: History of presenting illness: Date of Service: 04/06/24 Attending physician on admission: Jesi Coats Chief Complaint: severe abd pain 54-year-old male with history of hypertension, history of CVA with sequela of left-sided blindness, GERD, hyperlipidemia presented to the ED earlier this morning for evaluation of severe epigastric pain that started last night around 21:00 after eating beef stew. He reports he took Pepto-Bismol and subsequently vomited but has not had any episodes of nausea, vomiting. No diarrhea, melena, hematochezia. Denies chest pain, shortness of breath, lightheadedness. He reports the pain is sharp, stabbing, and burning without any radiation. He reports it is constant and is unable to identify any alleviating or exacerbating factors. On arrival, was documented as hypotensive at 69/51, however SBP has not been lower than 144 since, suspect this was an error. He was also initially tachycardic at 01:01 and tachypneic to 22, likely secondary to pain. He has a leukocytosis of 13.2. Renal function is baseline, electrolyte levels are normal. Glucose 169. Lactic acid 2.1 on repeat 1.9. AST 40, ALT 74, alkaline phosphatase 124. Urinalysis unremarkable. Urine tox screen positive for opiates and cocaine. Lipase within normal limits. He adamantly denies any illicit drug use. He does report smoking 5 cigarettes on a daily basis and denies alcohol use. CT abdomen pelvis shows hepatomegaly and hepatic steatosis cholelithiasis, but no cholecystitis. There is moderate gastric distention , correlate clinically for gastroparesis. There is also prominent urinary bladder distention. Bladder scan showed 478 cc but then urinated 400 cc. In the ED, has received 2 mg IV hydromorphone, 4 mg morphine, 50 mcg fentanyl, ondansetron, 3.8 L IVF. He does not take any aspirin or other blood thinners. Reports only occasional NSAID use and has not used in about 1 week. Hospital course: 54-year-old male with history of hypertension, history of CVA with sequela of left-sided blindness, GERD, hyperlipidemia presented with epigastric discomfort, CT abdomen and pelvis showed moderate gastric distension, hepatomegaly and hepatic steatosis, cholelithiasis with no evidence of acute cholecystitis and moderate size left-sided fat containing inguinal hernia, patient admitted to medical floor treated with IV ppi, IV fluid, Maalox At present patient is feeling better, denies nausea, no vomiting, no diarrhea, as per patient he was eating a lot lately and sleep soon after eating, he is eager to be discharged home and does not wish to stay for further workup, he has been advised to to take small frequent meals to stay upright after eating for 30-45 minutes he has been strongly advised to abstain from illicit drug use including opiates and cocaine, and recommend outpatient follow-up with GI for recurrent symptoms. Leukocytosis worsened likely reactive, patient declined to stay for further workup, He was noted to have elevated blood sugars hemoglobin A1c 6.5, need close outpatient follow-up with PCP, noted to have SIRS criteria tachypnea, tachycardia, likely due to pain improved. polysubstance abuse, urine toxicology positive for cocaine and opiate strongly recommend to abstain from illicit drug use patient refused to stay for Addiction Medicine consult. In regard to hypertension recommend to continue all home medications history CVA/hyperlipidemia continue statin not on aspirin. Time Attestation Discharge Coordination Time (in mins): 36 Quality: Safe Use of Opioids Does Pt have an Active Cancer Diagnosis on the Problem List?: No Quality: Stroke Does the patient have a stroke diagnosis?: No Physical Exam Vital Signs: Vital Signs: Last Vital Signs Temp 98.8 F 04/07/24 10:03 Pulse 86 04/07/24 10:03 Resp 18 04/07/24 10:03 BP 150/99 H 04/07/24 10:03 Pulse Ox 98 04/07/24 10:03 O2 Del Method Room Air 04/07/24 10:03 O2 Flow Rate 1 04/06/24 15:25 BMI result Body Mass Index 40.2 Const: Other: General resting comfortably in no acute distress. Left eye blindness Neck no JVD. CVS regular rate rhythm, Respiratory lungs clear to auscultation, no respiratory distress, no wheeze, no rhonchi. Gastrointestinal abdomen obese, non tender, bowel sounds audible, no guarding , no rigidity. Extremities no edema. Neuro non focal Skin no rash Psych appropriate affect. DS: Data Data Completed and Pending Labs on day of discharge: Laboratory Results - last 24 hr 04/06/24 04/06/24 04/06/24 09:59 10:42 11:55 WBC RBC Hgb Hct MCV MCH MCHC RDW Plt Count MPV Immature Gran % (Auto) Neut % (Auto) Lymph % (Auto) Burnet % (Auto) Eos % (Auto) Baso % (Auto) Lymph # (Auto) Burnet # (Auto) Eos # (Auto) Baso # (Auto) Abs Immat Gran (auto) Absolute Neuts (auto) Absolute Nucleated RBC Nucleated RBC % (auto) Smear Tech's Comments Sodium Potassium Chloride Carbon Dioxide Anion Gap BUN Creatinine Estim Creat Clear Calc Estimated GFR POC Glucose Random Glucose Estimat Average Glucose Hemoglobin A1c % Lactic Acid F/U @ 2Hr 1.6 Calcium Troponin I High Sens 8.4 Urine Opiates Screen POSITIVE H Ur Buprenorphine Scrn Not Detected Ur Oxycodone Screen Not Detected Urine Methadone Screen Not Detected Urine Fentanyl Screen Not Detected Ur Barbiturates Screen Not Detected Ur Phencyclidine Scrn Not Detected Ur Amphetamines Screen Not Detected U Benzodiazepines Scrn Not Detected Urine Cocaine Screen POSITIVE H U Marijuana (THC) Screen Not Detected 04/06/24 04/06/24 04/07/24 14:21 16:43 05:46 WBC 19.9 H RBC 5.45 Hgb 16.9 Hct 46.4 MCV 85.1 MCH 31.0 MCHC 36.4 H RDW 13.6 Plt Count 231 MPV 11.3 Immature Gran % (Auto) 0.9 H Neut % (Auto) 83.8 H Lymph % (Auto) 7.1 L Burnet % (Auto) 8.0 Eos % (Auto) 0.0 Baso % (Auto) 0.2 Lymph # (Auto) 1.4 Burnet # (Auto) 1.6 H Eos # (Auto) 0.0 Baso # (Auto) 0.0 Abs Immat Gran (auto) 0.18 H Absolute Neuts (auto) 16.7 H Absolute Nucleated RBC 0.000 Nucleated RBC % (auto) 0.0 Smear Tech's Comments VERIFIED Sodium 138 Potassium 3.9 Chloride 104 Carbon Dioxide 24 Anion Gap 14 BUN 10 Creatinine 1.05 Estim Creat Clear Calc 105.1 Estimated GFR > 60 POC Glucose 137 H Random Glucose 129 H Estimat Average Glucose 140 Hemoglobin A1c % 6.5 H Lactic Acid F/U @ 2Hr Calcium 10.7 H D Troponin I High Sens Urine Opiates Screen Ur Buprenorphine Scrn Ur Oxycodone Screen Urine Methadone Screen Urine Fentanyl Screen Ur Barbiturates Screen Ur Phencyclidine Scrn Ur Amphetamines Screen U Benzodiazepines Scrn Urine Cocaine Screen U Marijuana (THC) Screen Preliminary micro results at discharge 04/06/24 08:27 Blood Culture - Preliminary Blood - Venous No growth after 24 hours. 04/06/24 08:28 Blood Culture - Preliminary Blood - Venous No growth after 24 hours. Discharge Plan Discharge Anticipated Discharge Date/Time: 04/07/24 08:57 Patient Disposition: Home, Self-Care Discharge Diagnosis: Abdominal pain Referrals: Kamille Dixon MD [Primary Care Provider] - 1 Week Discharge Medications: Continued polyethylene glycol 3350 [Miralax] 17 gram/dose powder 238 g PO ONCE 1 Days Qty: 238 0RF Rx Instructions: Take as directed for bowel prep prior to colonoscopy atorvastatin 80 mg tablet 80 mg PO BEDTIME metoprolol succinate 50 mg tablet extended release 24 hr 50 mg PO DAILY amlodipine 5 mg tablet 5 mg PO DAILY losartan-hydrochlorothiazide 100-25 mg tablet 1 tab PO DAILY omeprazole 40 mg capsule,delayed release(DR/EC) 40 mg PO DAILY 30 Days Qty: 30 3RF Discharge Orders: Discharge Order (Routine); Ordered 04/07/24 Ordered By: Jesi Coats Diet: Advance to usual diet Activity on Discharge: As tolerated Stand Alone Forms: Patient Portal Discharge page Print Language: Russian Care Plan Goals: Abdominal pain recommend to take small frequent meals, avoid lying flat after eating Return to check with recurrent or worsening symptoms Health Concerns: Hypertension Plan of Treatment: Abdominal pain recommend outpatient follow-up with primary care physician and call microsoft exchange architect Dr. Barrera for follow-up in 1-2 weeks. Assessment: As above
--- NOTE | 2024-04-07 11:09 | MHC.RECOVRN ---
Went to meet with pt following consult request from provider. Pt had left AMA, unable to see.
== END 2024-04-07 13:45 | disposition home or self-care (01) ==
LOC: HO.ED 12:03 → HO.EDOVER 13:59
PROVIDERS: Physician Assistant; Admitting Provider Physician Assistant; Emergency Provider Student in an Organized Health Care Education/Training Program; PCP Internal Medicine; Visit Provider Hospitalist
DX: R10.9 Unspecified abdominal pain (principal); K31.84 Gastroparesis; K80.20 Calculus of gallbladder without cholecystitis without obstruction; R16.0 Hepatomegaly, not elsewhere classified; N32.89 Other specified disorders of bladder; R10.13 Epigastric pain; K40.90 Unilateral inguinal hernia, without obstruction or gangrene, not specified as recurrent; I10 Essential (primary) hypertension; R11.10 Vomiting, unspecified; R00.0 Tachycardia, unspecified; I95.9 Hypotension, unspecified; I69.398 Other sequelae of cerebral infarction; H54.7 Unspecified visual loss; K21.9 Gastro-esophageal reflux disease without esophagitis; R73.9 Hyperglycemia, unspecified; F19.10 Other psychoactive substance abuse, uncomplicated; E78.5 Hyperlipidemia, unspecified; Z79.899 Other long term (current) drug therapy
CPT/HCPCS: 36415; 71045; 74177; 80048; 80053; 80307; 81003; 82947; 83036; 83605; 83690; 83735; 84484; 85025; 85610; 87040; 93005; 94660; 96361; 96372; 96374; 96375; 96376; 99221; 99285; J0696; J1170; J1650; J2270; J2405; J2470; J3010; Q9967

== ENCOUNTER → 2024-04-06 07:49 | Outpatient (BNV) | payer OTHER, SELFPAY | PROVIDERS: Admitting Provider Physician Assistant; Emergency Provider Student in an Organized Health Care Education/Training Program; PCP Internal Medicine; Visit Provider Internal Medicine Cardiovascular Disease | DX: R94.31 Abnormal electrocardiogram [ECG] [EKG] (principal) | CPT/HCPCS: 93010 ==

== ENCOUNTER 2024-11-05 10:34 | Outpatient (REF) | payer OTHER, SELFPAY ==
--- OUTSIDE RECORDS SUMMARY | 2024-11-05 11:58 | XMS_ITS | Clinical Summary ---
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 Name Role Phone Unavailable Primary Care Provider Unavailabl e Social History Tobacco Use Types Packs/Day Years Used Date Smoking Tobacco: Never Assessed Sex and Gender Information Value Date Recorded Sex Assigned at Not on file Gender Identity Not on file Sexual Orientation Not on file Plan of Treatment Health Maintenance Due Date Last Done Comments Hepatitis B Vaccines (1 of 3 - 3-dose series) 1970 Hepatitis C Screening 1970 COVID-19 Vaccine (#1) 1968 Depression Screening 1980 Preventative Health Evaluation 01/04/1986 DTap / Tdap / Td (1 - Tdap) 01/04/1987 Colon Cancer Screening (Colonoscopy) 01/04/2013 Shingrix-Zoster Vaccine (1 of 2) 01/04/2018 Influenza Vaccine (#1) 2024 Pneumococcal Vaccine Aged Out No long er eligible based on patient's age to complete this topic RSV Ped < 20 months Aged Out No longe r eligible based on patient's age to complete this topic [address] Frankie Best Personal/Family Self 1970 [address]
--- OUTSIDE RECORDS SUMMARY | 2024-11-05 11:58 | XMS_ITS | Patient Health Record ---
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 Role Phone Kamille Dixon Primary Care Provider UnavailNahed Escamilla Unavailable [phone] Allergies No Known Allergies Reason For Referral No Information Medications Medication SIG (Take, Route, Frequency, Duration) Notes Start Date End Date Status Clindamycin Phosphate 1 % External for 30 Active Losartan Potassium-HCTZ 100-25 MG Oral for 90 Active Feldene 20 MG 1 capsule with food Orally Once a day for 30 day(s) 12/22/2022 Active Atorvastatin Calcium 20 MG Oral for 90 Active amLODIPine Besylate 5 MG Oral for 90 Active Social History Tobacco Use: Social History Observation Description Date Details (start date - stop date) Current Smoker NA - NA Tobacco Use/Smoking Question Answer Notes Are you a: current smoker How often do you smoke cigarettes? every day How many cigarettes a day do you smoke? 6-10 How soon after you wake up do you smoke your fir st cigarette? after 60 minutes Alcohol Screen Question Answer Notes Did you have a drink contain ing alcohol in the past year? Yes How often did you have a dri nk containing alcohol in the past year? 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
[2024-11-05 12:10] LABS: Alanine Aminotransferase 45 U/L (0-40); Albumin Level 4.1 g/dL (3.5-5.0); Alkaline Phosphatase 121 U/L (39-117); Anion Gap 10 (12-20); Aspartate Amino Transferase 25 U/L (5-37); Bilirubin Total 0.6 mg/dL (0.0-1.0); Blood Urea Nitrogen 19 mg/dL (9-16); Calcium 9.7 mg/dL (8.4-10.2); Carbon Dioxide 29 mmol/L (22-29); Chloride 106 mmol/L (96-108); Estimated Glomerular Filt Rate > 60; Glucose Random 122 mg/dL (60-115); Potassium 3.9 mmol/L (3.3-5.1); Sodium 141 mmol/L (135-145); Total Protein 7.3 g/dL (6.5-8.0)
[2024-11-05 12:21] LABS: HBS Num1 0.66 mIU/mL (0-7.99); HBc Num1 0.14 S/CO (0.00-0.79); HBsAGNum1 0.35 S/CO (0.00-0.99); Hepatitis B Core Antibody Nonreactive (Nonreactive); Hepatitis B Surface Antigen Negative (Negative); ~Hepatitis B Surface Antibody NONREACTIVE (Nonreactive); ~Hepatitis C Antibody Nonreactive (Nonreactive)
[2024-11-09 09:03] LABS: Hepatitis C Genotype Not Detected
== END 2024-11-05 10:35 | disposition home or self-care (01) ==
LOC: HO.10HDL 10:34
PROVIDERS: Visit Provider Internal Medicine
DX: I10 Essential (primary) hypertension (principal); E66.89 Other obesity not elsewhere classified; N52.1 Erectile dysfunction due to diseases classified elsewhere; R74.01 Elevation of levels of liver transaminase levels
CPT/HCPCS: 36415; 80053; 86704; 86706; 86803; 87340; 87902

== ENCOUNTER 2025-01-22 12:06 | Outpatient (REF) | payer OTHER, SELFPAY ==
--- OUTSIDE RECORDS SUMMARY | 2025-01-22 12:29 | XMS_ITS | Patient Health Record ---
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
[2025-01-22 13:23] LABS: Estimated Average Glucose 131 mg/dL; Hemoglobin A1c % 6.2 % (<6.0)
[2025-01-22 13:31] LABS: Alanine Aminotransferase 56 U/L (0-40); Albumin Level 4.3 g/dL (3.5-5.0); Alkaline Phosphatase 111 U/L (39-117); Anion Gap 12 (12-20); Aspartate Amino Transferase 29 U/L (5-37); Bilirubin Total 0.7 mg/dL (0.0-1.0); Blood Urea Nitrogen 21 mg/dL (9-16); Calcium 9.4 mg/dL (8.4-10.2); Carbon Dioxide 26 mmol/L (22-29); Chloride 106 mmol/L (96-108); Cholesterol 175 mg/dL (<200); Estimated Glomerular Filt Rate > 60; Glucose Random 123 mg/dL (60-115); HDL Cholesterol 35 mg/dL (>40); LDL Cholesterol Calculated 105 mg/dL (<100); Potassium 3.8 mmol/L (3.3-5.1); Sodium 140 mmol/L (135-145); Total Protein 7.1 g/dL (6.5-8.0); Triglycerides 177 mg/dL (<150)
[2025-01-22 13:48] LABS: Prostate Specific Antigen Scr 0.47 ng/mL (<0.05-4.0)
[2025-01-22 15:03] LABS: Amphetamine Screen Urine Not Detected (Not Detect); Barbiturates, Urine Not Detected (Not Detect); Benzodiazepines Screen Urine Not Detected (Not Detect); Buprenorphine Scr Not Detected (Not Detect); Cannabinoid Screen Urine Not Detected (Not Detect); Cocaine Screen Urine Not Detected (Not Detect); Fentanyl, urine Not Detected (Not Detect); Methadone Screen, Urine Not Detected (Not Detect); Opiate Screen Urine Not Detected (Not Detect); Oxycodone Screen Urine Not Detected (Not Detect); Phencyclidine Screen Urine Not Detected (Not Detect)
== END 2025-01-22 12:07 | disposition home or self-care (01) ==
LOC: HO.10HDL 12:06
PROVIDERS: Visit Provider Internal Medicine
DX: E78.00 Pure hypercholesterolemia, unspecified (principal); I10 Essential (primary) hypertension; N40.0 Benign prostatic hyperplasia without lower urinary tract symptoms; R73.01 Impaired fasting glucose; R74.01 Elevation of levels of liver transaminase levels; Z12.5 Encounter for screening for malignant neoplasm of prostate
CPT/HCPCS: 36415; 80053; 80061; 80307; 83036; 84153